=== PATIENT | female | born 1950 | race Caucasian/White ===

== ENCOUNTER 2018-03-07 22:05 | Inpatient (IN) ==
[2018-03-07] MEDS ORDERED: *HR* LORazepam 2 MG/ML VIAL ONE (22:12)
[2018-03-07] MEDS ORDERED: Ipratropium/Albuterol Neb 3 ML ONE (22:15)
[2018-03-07] MEDS ORDERED: Acetaminophen 650 MG RECTAL SUPP RC ONE (22:18)
[2018-03-07 22:34] LABS: Basophils # 0.1 K/mcL (0.0-0.2); Basophils % 0.4 %; Eosinophils % 0.1 %; Hematocrit 40.4 % (35.3-44.9); Hemoglobin 13.5 g/dL (11.5-15.4); Immature Granulocytes % 0.3 % (0-4); Lymphocytes # 2.5 K/mcL (0.6-4.6); Lymphocytes % 14.9 %; Mean Corpuscular HGB Conc 33.4 g/dL (31.6-35.5); Mean Corpuscular Hemoglobin 30.1 pg (28.0-33.3); Mean Corpuscular Volume 90.2 fL (83.0-100.0); Monocytes # 1.9 K/mcL (0.0-1.3); Monocytes % 11.3 %; Neutrophils # 12.1 K/mcL (1.6-8.9); Platelet Count 259 K/mcL (140-400); Red Blood Count 4.48 M/mcL (3.82-4.97); Red Cell Distribution Width 12.9 % (11.5-14.5)
[2018-03-07] MEDS ORDERED: Albuterol 2.5 MG/3 ML NEBULIZER IH ONE (22:42)
[2018-03-07] MEDS ORDERED: Ipratropium/Albuterol Neb 3 ML IH ONE (22:42)
[2018-03-07 22:44] LABS: ABG Base Excess 4 mEq/L (-2 to 3); ABG HCO3 32 mEq/L (21-27); ABG Oxygen Saturation 98 % (95-98); ABG PCO2 62 mmHg (35-45); ABG PH 7.33 pH Units (7.32-7.45); ABG PO2 122 mmHg (85-104); ABG TCO2 34 mEq/L (20-26)
[2018-03-07] MEDS ORDERED: methylPREDNISolone 125 MG/2 ML VIAL IVP ONE (22:48)
[2018-03-07 22:59] LABS: BUN/Creatinine Ratio 12 (6-26); Blood Urea Nitrogen 12 mg/dL (8-23); Calcium 9.1 mg/dL (8.6-10.3); Carbon Dioxide 27 mEq/L (23-29); Chloride 94 mEq/L (98-107); Glucose 239 mg/dL (70-105); Osmolality,Calculated 278 (280-300); Potassium 3.6 mEq/L (3.5-5.1); Sodium 130 mEq/L (136-145); eGFR For Non-African Americans 56 (> 60)
[2018-03-07 23:09] LABS: Troponin I 0.04 ng/mL (< 0.04)
[2018-03-07] MEDS ORDERED: Magnesium Sulfate 2 GM in D5% in Water 100 ML IVPB ONE (23:18)
[2018-03-07] MEDS ORDERED: Piperacillin/Tazobactam 3.375 GM in 0.9 % Sodium Chloride Mini Bag 100 ML IVPB ONE (23:24)
[2018-03-07] MEDS ORDERED: Vancomycin 1,000 MG in D5% in Water 250 ML IVPB ONE (23:24)
--- NOTE | 2018-03-07 23:46 | Emergency Department Note ---
Disposition Clinical Impression: Acute exacerbation of chronic obstructive pulmonary disease (COPD) Sepsis Qualifiers: Sepsis type: sepsis due to unspecified organism Qualified Code(s): A41.9 - Sepsis, unspecified organism Disposition: Admitted As Inpatient Condition: Fair Referrals: Vladislav Marino MD [Primary Care Provider] - Forms: ED Satisfaction Letter Time of Disposition: 01:00 [facility] - General Chief Complaint: ED Shortness of Breath/Dyspnea Stated Complaint: resp distress Time Seen by Provider: 03/07/18 22:21 Source: EMS Mode of arrival: ambulatory Limitations: other Nursing Notes Reviewed: Yes Vital Signs Reviewed: Yes - History of Present Illness 67-year-old female with a history of COPD presents to the emergency department in respiratory distress. Patient states symptoms have worsened over the past 2 days. She is unable to give a history regarding her case and presentation secondary to or respiratory distress. Patient was tripoding on initial evaluation and had subcostal retractions, she had a initial respiratory rate of 50. EMS states she was initially satting 60% at home, this improved with oxygen and albuterol inhaler with EMS. Patient was placed on BiPAP after the initial evaluation with a 3 duo nebs and 2 albuterol nebulizers. She gradually improved with her heart rate improving from 170 down to 125. Patient was also febrile on the initial evaluation of 101.2. Patient has a productive cough of yellow-green sputum. - Related Data Allergies Allergy/AdvReac Type Severity Reaction Status Date / Time No Known Allergies Allergy Verified 12/23/16 09:54 All systems ED: reviewed and negative except as stated. Review of Systems: As Per HPI Past Medical History - Past Medical History Attestation: Yes The following information was validated with the patient. Source: patient Medical history: Reports: COPD, hyperlipidemia, hypertension Psychiatric history: Reports: no psych history - Social History Smoking Status: Former smoker Smokeless Tobacco Status: No Alcohol use: Reports: none Drug use: Reports: none Physical Exam General: Alert and in respiratory distress with severe anxiety Skin: Warm, dry, intact Head: Normocephalic and atraumatic Neck: Supple, trachea midline and no tenderness Cardiovascular: Severe tachycardia, no murmur, normal perfusion Respiratory: Severe wheezing on bilateral posterior and anterior lung rincon with retractions present on exam. Musculoskeletal: Normal strength, no tenderness, swelling or deformity GI: Soft, nontender, nondistended. Bowel sounds present Neuro: A&O to person, place, time and situation. No focal deficits noted on exam - General Limitations: other General appearance: alert Course Vital Signs Temperature 101.2 F H 03/07/18 22:06 Pulse Rate 162 03/07/18 22:06 Respiratory Rate 40 03/07/18 22:06 Blood Pressure 161/112 03/07/18 22:06 O2 Sat by Pulse Oximetry 98 03/07/18 22:06 Temperature 98.0 F 03/08/18 00:45 Pulse Rate 126 03/08/18 00:45 Respiratory Rate 31 03/08/18 00:45 Blood Pressure 112/82 03/08/18 00:45 O2 Sat by Pulse Oximetry 99 03/08/18 00:45 Oxygen Delivery Oxygen Delivery Bipap Shortness of Breath/Dyspnea - MDM Narrative Medical decision making narrative: We had respiratory bedside and had confirmed patient is full code. We have possibility of intubating the patient however she started to gradually improve on BiPAP. Patient is now resting comfortably in the emergency department and answering questions well. She will be admitted to [facility] for further evaluation. Patient accepted by Dr. Austin. Patient was febrile emergency department and we started her on antibiotics empirically however her chest x-ray did not show evidence of acute infiltrate. - Medical Records Medical records reviewed: Yes I reviewed the patient's medical records. - Lab Data Lab results reviewed: Yes I reviewed the patient's lab results. Result diagrams: 03/07/18 22:26 03/07/18 22:26 Lab Results 03/07/18 03/07/18 03/07/18 Range/Units 22:19 22:26 22:26 WBC 16.6 H (4.3-11.1) K/mcL RBC 4.48 (3.82-4.97) M/mcL Hgb 13.5 (11.5-15.4) g/dL Hct 40.4 (35.3-44.9) % MCV 90.2 (83.0-100.0) fL MCH 30.1 (28.0-33.3) pg MCHC 33.4 (31.6-35.5) g/dL RDW 12.9 (11.5-14.5) % Plt Count 259 (140-400) K/mcL MPV 11.0 (9.4-12.4) fL Immature Gran % 0.3 (0-4) % Seg Neutrophils % 73.0 % Lymphocytes % 14.9 % Monocytes % 11.3 % Eosinophils % 0.1 % Basophils % 0.4 % Neutrophils # 12.1 H (1.6-8.9) K/mcL Lymphocytes # 2.5 (0.6-4.6) K/mcL Monocytes # 1.9 H (0.0-1.3) K/mcL Eosinophils # 0.0 (0.0-0.6) K/mcL Basophils # 0.1 (0.0-0.2) K/mcL Sample Site ABG pH (7.32-7.45) pH Units ABG pCO2 (35-45) mmHg ABG pO2 (85-104) mmHg ABG HCO3 (21-27) mEq/L ABG Total CO2 (20-26) mEq/L ABG O2 Saturation (95-98) % ABG Base Excess (-2 to 3) mEq/L Karri Test O2 Delivery Device Inspired O2 (1-15=lpm [id number]=%) Sodium 130 L (136-145) mEq/L Potassium 3.6 (3.5-5.1) mEq/L Chloride 94 L (98-107) mEq/L Carbon Dioxide 27 (23-29) mEq/L BUN 12 (8-23) mg/dL Creatinine 0.98 (0.60-1.20) mg/dL Est GFR ( Amer) > 60 (> 60) Est GFR (Non-Af Amer) 56 L (> 60) BUN/Creatinine Ratio 12 (6-26) Glucose 239 H (70-105) mg/dL Calculated Osmolality 278 L (280-300) Lactic Acid (0.5-2.2) mmol/L Calcium 9.1 (8.6-10.3) mg/dL Troponin I 0.04 H* (< 0.04) ng/mL B-Natriuretic Peptide 98 (Less than 100) pg/mL 03/07/18 03/07/18 03/08/18 Range/Units 22:26 22:37 00:24 WBC (4.3-11.1) K/mcL RBC (3.82-4.97) M/mcL Hgb (11.5-15.4) g/dL Hct (35.3-44.9) % MCV (83.0-100.0) fL MCH (28.0-33.3) pg MCHC (31.6-35.5) g/dL RDW (11.5-14.5) % Plt Count (140-400) K/mcL MPV (9.4-12.4) fL Immature Gran % (0-4) % Seg Neutrophils % % Lymphocytes % % Monocytes % % Eosinophils % % Basophils % % Neutrophils # (1.6-8.9) K/mcL Lymphocytes # (0.6-4.6) K/mcL Monocytes # (0.0-1.3) K/mcL Eosinophils # (0.0-0.6) K/mcL Basophils # (0.0-0.2) K/mcL Sample Site R Radial ABG pH 7.33 (7.32-7.45) pH Units ABG pCO2 62 H (35-45) mmHg ABG pO2 122 H (85-104) mmHg ABG HCO3 32 H (21-27) mEq/L ABG Total CO2 34 H (20-26) mEq/L ABG O2 Saturation 98 (95-98) % ABG Base Excess 4 H (-2 to 3) mEq/L Karri Test N/A O2 Delivery Device BiPAP Inspired O2 50.0 (1-15=lpm [id number]=%) Sodium (136-145) mEq/L Potassium (3.5-5.1) mEq/L Chloride (98-107) mEq/L Carbon Dioxide (23-29) mEq/L BUN (8-23) mg/dL Creatinine (0.60-1.20) mg/dL Est GFR ( Amer) (> 60) Est GFR (Non-Af Amer) (> 60) BUN/Creatinine Ratio (6-26) Glucose (70-105) mg/dL Calculated Osmolality (280-300) Lactic Acid 1.9 1.7 (0.5-2.2) mmol/L Calcium (8.6-10.3) mg/dL Troponin I (< 0.04) ng/mL B-Natriuretic Peptide (Less than 100) pg/mL - Radiology Data Radiology results reviewed: Yes I reviewed the patient's radiology results. - EKG Data EKG attestation: Yes I reviewed and interpreted this EKG. EKG results narrative: Sinus tachycardia with a rate of 158, QTC 446, QRS 111 Critical Care Time Critical Care Time: Yes Total Critical Care Time: 65 Attestation: The high probability of a clinically significant, sudden or life threatening deterioration of the respiratory and cardiovascular system(s) required my full and direct attention, intervention and personal management. The aggregate critical care time was 65 minutes. This time is in addition to time spent performing reported procedures but includes the following: x Data Review and interpretation x Patient assessment and monitoring of vital signs x Documentation x Medication orders and management
[2018-03-07] MEDS ORDERED: Levofloxacin 750 MG/150 ML 750 MG/150 ML BAG IVPB ONE (23:59)
--- NOTE | 2018-03-08 00:22 | Internal Med History&Physical ---
Date of Encounter: 03/08/18 Time of Encounter: 00:17 Internal Medicine - H&P: HPI Chief complaint: SOB Admitted From: Home History of present illness: Ms. Magaña is a 67 year old female with a PMH of COPD with 2 L continuous supplemental home oxygen dependence throughout the day, CAD, hypertension, hyperlipidemia, and obesity who presented c/o SOB, fever, and green-yellow sputum production for the past 2 days. Patient has recently been caring for her daughter at a group home and has been exposed to multiple sick contacts. Patient tried breathing treatments at home without relief. According to EMS, she was initially satting 60% at home, this improved with oxygen and albuterol inhaler via EMS. Patient was febrile on her initial evaluation temp 101.2 F and her heart rate improving from 170 down to 125 after she was was placed on BiPAP and given 3 duo nebs and 2 albuterol nebulizers. Labs revealed leukocytosis WBC 16.6 with left shift and CXR revealed new sclerotic appearance of the posterior right 10th rib without pleural effusion or focal airspace opacity. Patient's ABG revealed pH 7.33, pCO2 62, pO2 122, HCO3 32, and O2 sat 98% while on Bipap. Patient reports quit smoking in 1996. Granddaughter is at bedside. Past Med Surg Social Fam HX - Past Medical History Medical history: cancer (Cervical), COPD, coronary artery disease, hyperlipidemia, hypertension Psychiatric history: no psych history - Past Surgical History Surgical History: cataract, hysterectomy Additional surgical history: Heart Cath- no stents 2000. Hysterectomy 1971. Colonoscopy 12/09/13 Repeat in 3 years. EGD 12/09/13. cataract surgery 04/13/16 - Social History Smoking Status: Former smoker (quit in 1996) Smokeless Tobacco Status: No Alcohol use: none Drug use: none Current living situation: Home, With Family Activity Level: Independent ambulation - Family History Mother Living Status: Age at : 62 Hx Family Cardiac Disorders: Yes (CHF) Hx Family Cancer: Yes (Cervical) Hx Family Endocrine Disorder: Yes (DM) Father Living Status: Age at : 67 Hx Family Cardiac Disorders: Yes (Massive heart attack) Daughter Hx Family Neurologic Disorders: Yes (CVA) Internal Medicine - H&P: Meds 3 Allergy/AdvReac Type Severity Reaction Status Date / Time No Known Allergies Allergy Verified 12/23/16 09:54 All Systems PM: A 10-system review of systems was performed and is negative for pertinent findings except as documented above in the HPI. - Constitutional Constitutional: chills, fatigue, fever(s), lethargy, weakness, no weight gain, no weight loss - EENT Eyes: no blurry vision, no change in vision Nose, mouth and throat: no nasal congestion, no sinus pain, no sore throat - Cardiovascular Cardiovascular ROS IM: diaphoresis, dyspnea, dyspnea on exertion, palpitations, no chest pain, no edema - Respiratory Respiratory: cough, dyspnea, dyspnea on exertion, wheezing, chest congestion, excessive phlegm production, change in phlegm color (green), no hemoptysis - Gastrointestinal Gastrointestinal: constipation, heartburn, no abdominal pain, no bloating, no nausea, no vomiting - Genitourinary Genitourinary: no dysuria, no hematuria, no urinary frequency, no urinary urgency - Musculoskeletal Musculoskeletal ROS IM: no back pain, no numbness, no tingling - Integumentary Integumentary IM: no erythema, no rash - Neurological Neurological ROS: weakness, no dizziness, no focal weakness, no frequent falls, no headache(s), no numbness, no tremor(s) - Psychiatric Psychiatric: no anxiety, no depression - Endocrine Endocrine IM: fatigue, polyuria, no polydipsia, no polyphagia - Hematologic/Lymphatic Hematologic/Lymphatic: no easy bleeding, no easy bruising - Constitutional Vitals: Temp Pulse Resp BP Pulse Ox 101.2 F H 141 40 113/81 97 03/07/18 22:06 03/08/18 00:13 03/08/18 00:13 03/08/18 00:13 03/08/18 00:13 General appearance: Present: mild distress, A&O X 3, pleasant, obese, answers questions appropriately Exam: mild distress, wearing bipap - Head Head exam: Present: atraumatic, normocephalic - Eye Eye exam: Present: EOMI, conjuntiva pink, sclera anicteric - ENT ENT exam: Present: mucous membranes dry, normal oropharynx - Neck Neck exam general surgery: Present: supple, trachea midline. Absent: lymphadenopathy - Respiratory Respiratory exam: Present: accessory muscle use, respiratory distress (mild), wheezes (diffuse, bilaterally), tachypnea. Absent: CTAB, rales, rhonchi - Cardiovascular Cardiovascular exam: Present: +S1, +S2, tachycardia. Absent: diastolic murmur, gallop, rubs, systolic murmur - GI/Abdominal GI/Abdominal exam: Present: normal bowel sounds, soft, no peritoneal signs. Absent: distended, tenderness - Extremities Exam Extremities exam: Present: normal inspection, warm, radial pulses palpable and symmetrical. Absent: calf tenderness, cyanotic, pedal edema - Back Exam Back exam: Present: normal inspection. Absent: tenderness - Neurological Exam Neurological exam: Present: alert, CN II-XII intact, oriented X3, no focal deficits. Absent: pronater drift, facial droop, speech deficit - Psychiatric Psychiatric exam: Present: anxious, normal affect - Skin Skin exam: Present: dry, intact, normal color, warm Internal Med - H&P Results - Labs CBC & Chem 7: 03/07/18 22:26 03/07/18 22:26 Labs: Short CBC 03/07/18 Range/Units 22:26 WBC 16.6 H (4.3-11.1) K/mcL Hgb 13.5 (11.5-15.4) g/dL Hct 40.4 (35.3-44.9) % Plt Count 259 (140-400) K/mcL Neutrophils # 12.1 H (1.6-8.9) K/mcL BMP 03/07/18 22:26 Sodium 130 L Potassium 3.6 Chloride 94 L Carbon Dioxide 27 BUN 12 Creatinine 0.98 Glucose 239 H Calcium 9.1 Cardiac Enzymes 03/07/18 Range/Units 22:26 Troponin I 0.04 H* (< 0.04) ng/mL - ABG Interpretation ABG results: 03/07/18 22:37 ABG pH 7.33 ABG pCO2 62 H ABG pO2 122 H ABG HCO3 32 H ABG Total CO2 34 H ABG O2 Saturation 98 ABG Base Excess 4 H - EKG Data -: EKG Interpreted by Myself EKG shows normal: sinus rhythm Rate: tachycardia (HR 158, QTC 446, QRS 111, borderline ST depressions in inferior leads) - EKG Data Prior EKG available for review: yes When compared to previous EKG: there are significant changes - Impressions ITS Impressions Chest X-Ray 03/07/18 22:19 IMPRESSION: 1. The visible lungs are without evidence of pneumothorax, pleural effusion or focal airspace opacity. 2. Apparent new sclerotic appearance of the posterior right 10th rib in comparison with the prior study from 12/23/2016. Attention on follow-up chest radiographs is recommended. This could be further evaluated via dedicated radiographs of the right ribs on a nonemergent basis. D/ / Jaya Jones / Jaya Jones Interpreting Provider: Jaya Jones - Assessment and plan (1) Sepsis Current Visit: Yes Status: Acute Assessment and plan: Patient met sepsis criteria on arrival with leukocytosis WBC 16.6 with left shift, tachycardia HR 162, and temperature 101.2 F She has copious green sputum production and acute respiratory distress CXR revealed new sclerotic appearance of the posterior right 10th rib without pleural effusion or focal airspace opacity Continue broad spectrum antibiotics Vancomycin, Zosyn, and Levaquin (day 1). Blood cultures pending Sputum cultures pending UA with culture pending Sepsis IV fluid bolus was given Lactic acid level 1.9, repaet lactic acid level 1.7 Qualifiers: Sepsis type: sepsis due to unspecified organism Qualified Code(s): A41.9 - Sepsis, unspecified organism (2) Healthcare-associated pneumonia Current Visit: Yes Status: Suspected Assessment and plan: Patient has recently been caring for her daughter at a group home and has been exposed to multiple sick contacts. Patient met sepsis criteria on arrival with leukocytosis WBC 16.6 with left shift, tachycardia HR 162, and temperature 101.2 F She has copious green sputum production and acute respiratory distress. CXR revealed new sclerotic appearance of the posterior right 10th rib without pleural effusion or focal airspace opacity Continue broad spectrum antibiotics Vancomycin, Zosyn, and Levaquin (day 1). Blood cultures pending Sputum cultures pending Urine Legionella and strep pneumo antigens pending Procalcitonin level pending De-escalate antibiotics based on culture results Continue close monitoring (3) Acute on chronic respiratory failure with hypoxia and hypercapnia Current Visit: Yes Status: Acute Assessment and plan: Patient presents with acute respiratory failure Patient usually wears 2 L of oxygen during the day ABG reviewed, reveals pH 7.33, pCO2 62, pO2 122, HCO3 32, and O2 sat 98% while on Bipap Continue BiPAP and repeat ABG in AM (4) Acute exacerbation of chronic obstructive pulmonary disease (COPD) Current Visit: Yes Status: Acute Assessment and plan: Acute exacerbation of COPD Continue antibiotics, steroids, and bronchodilators Patient sees television news producer, Dr. Bone (5) CAD (coronary artery disease) Current Visit: Yes Status: Acute Assessment and plan: Patient has known CAD Heart Cath 2000- no stents Last echo 06/02/15 revealed LVEF 55-60%, mild LV diastolic dysfunction, and no pulmonary HTN. Continue home Aspirin and statin Qualifiers: Coronary Disease-Associated Artery/Lesion type: unspecified vessel or lesion type [place] vs. transplanted heart: [place] heart Associated angina: without angina Qualified Code(s): I25.10 - Atherosclerotic heart disease of [place] coronary artery without angina pectoris (6) Elevated troponin Current Visit: Yes Status: Acute Assessment and plan: Patient presented with elevated troponin level was 0.04 EKG revealed sinus tachycardia with no signs of ischemia Possibly etiology includes demand ischemia in the setting of sepsis Trend serial troponins Consider cardiology consult if troponin level continues to rise (7) HTN (hypertension) Current Visit: Yes Status: Chronic Assessment and plan: Continue home metoprolol Qualifiers: Hypertension type: essential hypertension Qualified Code(s): I10 - Essential (primary) hypertension (8) HLD (hyperlipidemia) Current Visit: No Status: Chronic Assessment and plan: Resume home statin Qualifiers: Hyperlipidemia type: unspecified Qualified Code(s): E78.5 - Hyperlipidemia , unspecified (9) Obesity (BMI 30.0-34.9) Current Visit: Yes Status: Chronic Assessment and plan: BMI 31.1, lifestyle modification (10) Constipation Current Visit: Yes Status: Chronic Assessment and plan: Senna Plus ordered Qualifiers: Constipation type: unspecified constipation type Qualified Code(s): K59.00 - Constipation, unspecified (11) DVT prophylaxis Current Visit: Yes Status: Acute Assessment and plan: Heparin subcutaneous TID - Time Spent With Patient Total time spent is greater than 50% in coordination of care (as documented) at patient's floor/unit and/or counseling patient: Sepsis Reassessment Note - Evaluation Sepsis Screen: Sepsis Risk Current Stage of Sepsis: sepsis Possible Source of Sepsis: pulmonary - Focused Exam Date of Encounter: 03/08/18 Time of Encounter: 01:32 Vital Signs: Vital Signs Temp Pulse Resp BP Pulse Ox 03/08/18 00:45 126 31 112/82 99 03/08/18 00:13 141 40 113/81 97 03/07/18 23:46 28 117/78 97 03/07/18 23:42 143 33 117/78 97 03/07/18 23:06 162 44 139/93 98 03/07/18 22:47 35 139/93 99 03/07/18 22:33 158 40 154/91 93 03/07/18 22:29 92 03/07/18 22:15 50 161/112 98 03/07/18 22:06 101.2 F H 162 40 161/112 98 Respiratory Exam: Present: wheezes, accessory muscle use Cardiovascular Exam: Present: tachycardia Capillary Refill: < 2 seconds Peripheral Pulse Strength: 3+ normal Peripheral Pulse Location: Radial Skin Exam: pink
[2018-03-08] MEDS ORDERED: Vancomycin (wt based) 1,000 MG VIAL IVPB SCH (01:00)
[2018-03-08] MEDS: 0.9 % Sodium Chloride 1,000 ML IVC SCH ×3 (01:31→05:09)
[2018-03-08 01:35] LABS: Magnesium 1.9 mg/dL (1.6-2.6)
[2018-03-08] MEDS ORDERED: Aspirin Enteric Coated 325 MG Tablet PO ONE (01:42)
[2018-03-08 02:18] LABS: Bilirubin,Urine Negative (Negative); Blood,Urine Large (Negative); Clarity,Urine Cloudy (Clear); Color,Urine Yellow (Yellow); Glucose,Urine (UA) 100 mg/dL (Normal); Ketones,Urine Negative (Negative); Leukocyte Esterase,Urine Trace (Negative); Nitrite,Urine Negative (Negative); Protein,Urine 100 mg/dL (Neg-Trace); Specific Gravity,Urine 1.014 (1.010-1.025); Urobilinogen,Urine Normal (Normal)
[2018-03-08 02:20] LABS: Bacteria,Urine Few per hpf (None-Few); Hyaline Casts,Urine Few per lpf (None-Few); RBC,Urine TNTC per hpf (0-3); Squamous Epithelial Cell,Urine Many per lpf (None-Few); WBC,Urine 50-100 per hpf (0-3)
[2018-03-08] MEDS: Melatonin 3 MG TABLET PO SCH ×2 (03:18→22:16)
[2018-03-08] MEDS: Ipratropium/Albuterol Neb 3 ML IH SCH ×2 (03:43→07:31)
[2018-03-08 04:21] LABS: Hematocrit 34.8 % (35.3-44.9); Mean Corpuscular HGB Conc 33.3 g/dL (31.6-35.5); Mean Corpuscular Hemoglobin 30.1 pg (28.0-33.3); Mean Corpuscular Volume 90.2 fL (83.0-100.0); Mean Platelet Volume 11.1 fL (9.4-12.4); Platelet Count 173 K/mcL (140-400); Red Blood Count 3.86 M/mcL (3.82-4.97)
[2018-03-08 04:31] LABS: INR 1.2; Prothrombin Time 13.6 Seconds (9.4-12.1)
[2018-03-08 04:33] LABS: Hemoglobin 11.6 g/dL (11.5-15.4)
[2018-03-08 04:34] LABS: Activated Partial Thrombo Time 25.8 Seconds (26.0-36.0)
[2018-03-08 04:40] LABS: BUN/Creatinine Ratio 12 (6-26); Blood Urea Nitrogen 13 mg/dL (8-23); Calcium 8.1 mg/dL (8.6-10.3); Carbon Dioxide 26 mEq/L (23-29); Chloride 99 mEq/L (98-107); Glucose 216 mg/dL (70-105); Osmolality,Calculated 279 (280-300); Potassium 3.3 mEq/L (3.5-5.1); Sodium 131 mEq/L (136-145); eGFR For Non-African Americans 50 (> 60)
[2018-03-08] MEDS ORDERED: Potassium Chloride 40 MEQ, Lidocaine 1% 2 ML in D5% in Water 500 ML IVPB ONE (04:42)
[2018-03-08 04:43] LABS: Troponin I 0.07 ng/mL (< 0.04)
[2018-03-08 04:44] LABS: ABG Base Excess -1 mEq/L (-2 to 3); ABG HCO3 25 mEq/L (21-27); ABG Oxygen Saturation 96 % (95-98); ABG PCO2 42 mmHg (35-45); ABG PH 7.38 pH Units (7.32-7.45); ABG PO2 87 mmHg (85-104); ABG TCO2 26 mEq/L (20-26); Blood Gas Modality avaps; Blood Gas PEEP 8 cm H2O; Blood Gas VT 500 cc
[2018-03-08 05:40] LABS: Lymphocytes # 0.2 K/mcL (0.6-4.6); Monocytes # 0.2 K/mcL (0.0-1.3); Neutrophils # 11.5 K/mcL (1.6-8.9); Platelet Estimate Normal (Normal)
[2018-03-08] MEDS: *HR* Heparin 5,000 UNIT/ML VIAL SQ SCH ×3 (05:57→19:49)
[2018-03-08] MEDS ORDERED: MethylPREDNISolone 40 MG/ML VIAL IVP SCH (08:00)
[2018-03-08] MEDS ORDERED: Piperacillin/Tazobactam 3.375 GM in 0.9 % Sodium Chloride Mini Bag 100 ML IVPB SCH (08:00)
[2018-03-08] MEDS ORDERED: Levalbuterol Neb 0.63 MG/3 ML IH ONE (08:26)
--- NOTE | 2018-03-08 08:39 | Internal Med Progress Note ---
<Bradly Scott S - Last Filed: 03/08/18 12:38> Hospitalist Progress Note - Encounter Date of Encounter: 03/08/18 Time of Encounter: 08:36 - Subjective Interval History: Ms. Magaña is a 67yo female with a PMH of COPD requring 2L O2 throughout the day , CAD, HDL, HTN and obesity. She presented on 03/07 with increasing SOB from baseline, subjective fevers and increase in olive green sputum production for the last 48hrs. She states she has been increasingly having upper URI s/s over the last 3-4 weeks and then suddenly began to feel worse. She has been caring for her daughter who recently had a stroke. Of note, she told the night resident that she was staying at a fpc but I clarfieid this with her and she states the daughter lives at home. The pt was found to be O2 sat in the 60's by EMS , which improved with oxygen and albuterol inhaler. -initial temprature was 101.2*F and heart rate was 170, which improved with BiPAP to the 120's Pt reports sputum production continuing this morning. She states it is olive green in color without blood. She has difficulty breathing, speaking in full sentences. The pt denies chest pain, palpiltations, N/V/D, abd pain. She states that she is able to lie down but is having some trouble and diffiuculty doing so 2/2 SOB. - Exam Vitals: Temp Pulse Resp BP Pulse Ox 98.2 F 101 24 133/83 99 03/08/18 06:49 03/08/18 06:49 03/08/18 07:33 03/08/18 06:49 03/08/18 07:33 Exam: general - AOx3, mild distress, cooperative cardio - rrr s1s2 CTA no MRG lungs - wheezing in all lung rincon, scattered crackles no rhonchi. Decreased breath sounds abd - obese, ntnd, no rebound or guarding skin - intact, no rash or ulcer extremities - no edema - Assessment and Plan (1) Sepsis Current Visit: Yes Status: Acute Assessment and Plan: On admission pt met sepsis criteria with leukocytosis 16.6, HR 162, t max 101.2 -Possible source of infxn was CXR with new sclerotic appearance of the posterior right 10th rib without pleural effusion or focal airspace opacity Currently continues to meet sepsis criteria WBC 12, HR 101, pt remains afebrile Lactic acid 1.9, repeat 1.7 S pneumo and legionella anitgens negative MRSA screen negative Plan: -blood cultures pending -On Zosyn and Levaquin (day 1) -d/c vanc -sputum cx peding -sepsis bolus given, no fluids currently running -procalcitonin pending (2) HTN (hypertension) Current Visit: No Status: Chronic Assessment and Plan: BP 154/91 -add hydralazine 10mg IVP q6hr prn SBP>160 -Continue home metoprolol (3) HLD (hyperlipidemia) Current Visit: No Status: Chronic Assessment and Plan: Resume home statin (4) Obesity (BMI 30.0-34.9) Current Visit: No Status: Chronic Assessment and Plan: BMI 31.1, lifestyle modification (5) DVT prophylaxis Current Visit: Yes Status: Acute Assessment and Plan: Heparin subcutaneous TID (6) Acute on chronic respiratory failure with hypoxia and hypercapnia Current Visit: Yes Status: Acute Assessment and Plan: Patient presents with acute respiratory failure -Patient usually wears 2 L of oxygen during the day, had to turn it up to 4L -ABG reviewed, reveals pH 7.33, pCO2 62, pO2 122, HCO3 32, and O2 sat 98% while on Bipap -ABG this morning is pH 7.38, pCO2 42, pO2 87, HCO3 33 Plan: -Continue BiPAP -methylprednisolone 40mg IVP q12 -Xopenex 1.25mg q6hr (7) Constipation Current Visit: Yes Status: Chronic Assessment and Plan: Senna Plus ordered (8) Acute exacerbation of chronic obstructive pulmonary disease (COPD) Current Visit: Yes Status: Acute Assessment and Plan: Acute exacerbation of COPD -increase of green mucus, fever, cough, SOB from baseline -increased needs of oxygen Plan: -methylprednisolone IV q12hr -Xopenex q6hr -vanc, zosyn, levaquin -sees Dr. Snow outpatient (9) CAD (coronary artery disease) Current Visit: Yes Status: Acute Assessment and Plan: Patient has known CAD -no stents, [facility] 2000 Last echo 06/02/15 revealed LVEF 55-60%, mild LV diastolic dysfunction, and no pulmonary HTN. Plan: -Continue home Aspirin, beta tai and statin (10) Elevated troponin Current Visit: Yes Status: Acute Assessment and Plan: Patient presented with elevated troponin level was 0.04 ---> 0.07 -EKG revealed sinus tachycardia with no signs of ischemia Type II - demand ischemia -trend troponins -consult cardiology if troponin continues to increase (11) Hypokalemia Current Visit: Yes Status: Acute Assessment and Plan: K this morning 3.3 -replaced -check CMP in AM (12) Community acquired pneumonia Current Visit: Yes Status: Acute Assessment and Plan: Increasing green sputum production, cough, SOB, fever -sepsis criteria on arrival with leukocytosis WBC 16.6 with left shift, tachycardia HR 162, and temperature 101.2 F Pt currently in mild respiratory distress, unable to speak in full sentences and is using accessory mm of respiration -CXR revealed new sclerotic appearance of the posterior right 10th rib without pleural effusion or focal airspace opacity Legionella and s pneumo antigens negative MRSA screen negative Plan: -Continue broad spectrum antibiotics Zosyn, and Levaquin (day 1) -d/c vanc (03/08/18) -Blood cultures pending -Sputum cultures pending -Procalcitonin level pending -De-escalate antibiotics based on culture results -PTOT evaluation - Time Spent with Patient Total time spent is greater than 50% in coordination of care (as documented) at patient's floor/unit and/or counseling patient: less than 15 minutes Plan of Care Discussed with: patient Internal Medicine: Result - Labs CBC & Chem 7: 03/08/18 04:04 03/08/18 04:04 - ABG Interpretation ABG results: ABG ABG pH 7.38 pH Units (7.32-7.45) 03/08/18 04:40 ABG pCO2 42 mmHg (35-45) 03/08/18 04:40 ABG pO2 87 mmHg (85-104) 03/08/18 04:40 ABG O2 Saturation 96 % (95-98) 03/08/18 04:40 PT/INR, D-dimer PT 13.6 Seconds (9.4-12.1) H 03/08/18 04:04 Consult Discharge Plan - Plan Referrals: Vladislav Marino MD [Primary Care Provider] - 03/16/18 2:00 pm <Mj Woo - Last Filed: 03/08/18 17:53> Hospitalist Progress Note - Encounter Date of Encounter: 03/08/18 - Exam Vitals: Temp Pulse Resp BP Pulse Ox 98.2 F 128 22 130/70 92 03/08/18 16:13 03/08/18 16:13 03/08/18 16:13 03/08/18 16:13 03/08/18 16:13 - Assessment and Plan (1) Sepsis Current Visit: Yes Status: Acute (2) HTN (hypertension) Current Visit: No Status: Chronic (3) HLD (hyperlipidemia) Current Visit: No Status: Chronic (4) Obesity (BMI 30.0-34.9) Current Visit: No Status: Chronic (5) DVT prophylaxis Current Visit: Yes Status: Acute (6) Acute on chronic respiratory failure with hypoxia and hypercapnia Current Visit: Yes Status: Acute (7) Constipation Current Visit: Yes Status: Chronic (8) Acute exacerbation of chronic obstructive pulmonary disease (COPD) Current Visit: Yes Status: Acute (9) CAD (coronary artery disease) Current Visit: Yes Status: Acute (10) Elevated troponin Current Visit: Yes Status: Acute (11) Hypokalemia Current Visit: Yes Status: Acute (12) Community acquired pneumonia Current Visit: Yes Status: Acute - Time Spent with Patient Total time spent is greater than 50% in coordination of care (as documented) at patient's floor/unit and/or counseling patient: Internal Medicine: Result - Labs CBC & Chem 7: 03/08/18 04:04 03/08/18 04:04 Labs: Cardiac Enzymes 03/08/18 Range/Units 10:10 Troponin I 0.03 (< 0.04) ng/mL - ABG Interpretation ABG results: ABG ABG pH 7.38 pH Units (7.32-7.45) 03/08/18 04:40 ABG pCO2 42 mmHg (35-45) 03/08/18 04:40 ABG pO2 87 mmHg (85-104) 03/08/18 04:40 ABG O2 Saturation 96 % (95-98) 03/08/18 04:40 PT/INR, D-dimer PT 13.6 Seconds (9.4-12.1) H 03/08/18 04:04 - Attending Attestation I examined this patient and my medical decision-making was reviewed with the Resident Physician. I agree with the documented findings, disposition and treatment plan as described except to the extent set forth below. <Bradly Scott - Last Filed: 03/08/18 12:38> (1) Sepsis Qualifiers: Sepsis type: sepsis due to unspecified organism Qualified Code(s): A41.9 - Sepsis, unspecified organism (2) HTN (hypertension) Qualifiers: Hypertension type: essential hypertension Qualified Code(s): I10 - Essential (primary) hypertension (3) HLD (hyperlipidemia) Qualifiers: Hyperlipidemia type: unspecified Qualified Code(s): E78.5 - Hyperlipidemia, unspecified (7) Constipation Qualifiers: Constipation type: unspecified constipation type Qualified Code(s): K59.00 - Constipation, unspecified (9) CAD (coronary artery disease) Qualifiers: Coronary Disease-Associated Artery/Lesion type: unspecified vessel or lesion type [place] vs. transplanted heart: [place] heart Associated angina: without angina Qualified Code(s): I25.10 - Atherosclerotic heart disease of [place] coronary artery without angina pectoris (12) Community acquired pneumonia Qualifiers: Laterality: right Lung location: unspecified part of lung Qualified Code(s) : J18.9 - Pneumonia, unspecified organism <[email or web address] - Last Filed: 03/08/18 17:53> (1) Sepsis Qualifiers: Sepsis type: sepsis due to unspecified organism Qualified Code(s): A41.9 - Sepsis, unspecified organism (2) HTN (hypertension) Qualifiers: Hypertension type: essential hypertension Qualified Code(s): I10 - Essential (primary) hypertension (3) HLD (hyperlipidemia) Qualifiers: Hyperlipidemia type: unspecified Qualified Code(s): E78.5 - Hyperlipidemia, unspecified (7) Constipation Qualifiers: Constipation type: unspecified constipation type Qualified Code(s): K59.00 - Constipation, unspecified (9) CAD (coronary artery disease) Qualifiers: Coronary Disease-Associated Artery/Lesion type: unspecified vessel or lesion type [place] vs. transplanted heart: [place] heart Associated angina: without angina Qualified Code(s): I25.10 - Atherosclerotic heart disease of [place] coronary artery without angina pectoris (12) Community acquired pneumonia Qualifiers: Laterality: right Lung location: unspecified part of lung Qualified Code(s) : J18.9 - Pneumonia, unspecified organism
[2018-03-08] MEDS ORDERED: Aspirin Enteric Coated 81 MG Tablet PO SCH (09:00)
[2018-03-08] MEDS ORDERED: Levalbuterol Neb 1.25 MG/3 ML IH SCH (10:00)
[2018-03-08] MEDS ORDERED: Levalbuterol Neb 0.63 MG/3 ML IH PRN (10:40)
[2018-03-08] MEDS: Levalbuterol Neb 1.25 MG/3 ML IH SCH ×4 (11:33→23:08)
[2018-03-08] MEDS: Acetaminophen 325 MG TABLET PO PRN (12:49)
[2018-03-08] MEDS ORDERED: Aminoglycoside Consult 1 EACH MC ONE (14:38)
--- NOTE | 2018-03-08 15:39 | Electrocardiograph Report ---
[address] [address] Test Date: 2018-03-07 Pat Name: Alice Magaña Department: EXAM2 Room: 03 Gender: F [employer]: : 1950 Requested By: Vladislav Ren Order Number: [id number] Reading MD: Mayda Zhang Measurements Intervals [place] Rate: 158 P: 83 GA: 123 QRS: 92 QRSD: 111 T: 70 QT: 275 QTc: 446 Interpretive Statements Sinus tachycardia Nonspecific ST abnormalities Electronically Signed On 03-08-2018 15:37:38 EDT by Mayda Zhang
[2018-03-08] MEDS: MethylPREDNISolone 40 MG/ML VIAL IVP SCH (17:37)
[2018-03-08] MEDS: Budesonide/Formoterol 160/4.5 1 PUFF INH IH SCH (20:15)
[2018-03-08] MEDS ORDERED: *HR* LORazepam 2 MG/ML VIAL IVP ONE (20:36)
[2018-03-08] MEDS ORDERED: NON-FORMULARY MEDICATION 1 EACH EACH (Potassium Chloride [Klor-Con 10] 10 MEQ) PO SCH (21:00)
[2018-03-09] MEDS: Levalbuterol Neb 1.25 MG/3 ML IH SCH ×6 (04:16→23:00)
[2018-03-09 05:08] LABS: Basophils % 0.1 %; Hemoglobin 11.3 g/dL (11.5-15.4); Immature Granulocytes % 0.5 % (0-4); Lymphocytes # 1.4 K/mcL (0.6-4.6); Lymphocytes % 10.2 %; Mean Corpuscular HGB Conc 33.2 g/dL (31.6-35.5); Mean Corpuscular Hemoglobin 29.9 pg (28.0-33.3); Mean Corpuscular Volume 89.9 fL (83.0-100.0); Mean Platelet Volume 11.3 fL (9.4-12.4); Monocytes # 0.9 K/mcL (0.0-1.3); Monocytes % 6.5 %; Neutrophils # 11.5 K/mcL (1.6-8.9); Platelet Count 185 K/mcL (140-400); Red Blood Count 3.78 M/mcL (3.82-4.97); Red Cell Distribution Width 12.8 % (11.5-14.5); Segmented Neutrophils % 82.7 %
[2018-03-09] MEDS: *HR* Heparin 5,000 UNIT/ML VIAL SQ SCH ×3 (05:24→21:56)
[2018-03-09] MEDS: MethylPREDNISolone 40 MG/ML VIAL IVP SCH ×2 (05:24→17:38)
[2018-03-09 05:57] LABS: Alanine Aminotransferase 51 Units/L (7-52); Albumin 3.6 g/dL (3.5-5.7); Albumin/Globulin Ratio 1.2 (1.1-2.2); Alkaline Phosphatase 64 Units/L (34-104); Aspartate Amino Transferase 51 Units/L (13-39); BUN/Creatinine Ratio 21 (6-26); Bilirubin,Total 0.3 mg/dL (0.3-1.0); Blood Urea Nitrogen 16 mg/dL (8-23); Carbon Dioxide 27 mEq/L (23-29); Chloride 103 mEq/L (98-107); Glucose 153 mg/dL (70-105); Osmolality,Calculated 284 (280-300); Potassium 4.5 mEq/L (3.5-5.1); Sodium 135 mEq/L (136-145); Total Protein 6.6 g/dL (6.4-8.9); eGFR For Non-African Americans > 60 (> 60)
[2018-03-09] MEDS: Lisinopril 20 MG TABLET PO SCH (07:59)
[2018-03-09] MEDS: Azithromycin 250 MG TABLET PO SCH (07:59)
[2018-03-09] MEDS: Aspirin Enteric Coated 81 MG Tablet PO SCH (07:59)
[2018-03-09] MEDS: Tiotropium 18 MCG inhalation IH SCH (07:59)
[2018-03-09] MEDS: Budesonide/Formoterol 160/4.5 1 PUFF INH IH SCH ×2 (08:07→20:40)
[2018-03-09] MEDS ORDERED: (Ubidecarenone [Coq10] 50 MG) PO SCH (09:00)
--- NOTE | 2018-03-09 09:21 | Internal Med Progress Note ---
<Bradly Scott S - Last Filed: 03/09/18 11:51> Hospitalist Progress Note - Encounter Date of Encounter: 03/09/18 Time of Encounter: 09:17 - Subjective Interval History: Ms. Magaña is a 67yo female with a PMH of COPD requring 2L O2 throughout the day , CAD, HDL, HTN and obesity. She presented on 03/07 with increasing SOB from baseline, subjective fevers and increase in olive green sputum production for the last 48hrs. She states she has been increasingly having upper URI s/s over the last 3-4 weeks and then suddenly began to feel worse. She has been caring for her daughter who recently had a stroke. Of note, she told the night resident that she was staying at a fpc but I clarfieid this with her and she states the daughter lives at home. The pt was found to be O2 sat in the 60's by EMS , which improved with oxygen and albuterol inhaler. -initial temprature was 101.2*F and heart rate was 170, which improved with BiPAP to the 120's Yesterday morning the pt still reported olive green in color sputum production without blood. Pt continues to have difficulty breathing, speaking in full sentences. -The pt denies chest pain, palpiltations, N/V/D, abd pain. -was unable to lie flat on back completely and had to sleep sitting slightly up Pt reports that sputum production has improved but isn't completely resolved. - Exam Vitals: Temp Pulse Resp BP Pulse Ox 98.4 F 95 20 139/79 92 03/09/18 08:27 03/09/18 08:27 03/09/18 08:27 03/09/18 08:27 03/09/18 08:27 Exam: general - AOx3, mild distress, cooperative cardio - rrr s1s2 CTA no MRG lungs - wheezing in all lung rincon, scattered crackles no rhonchi. Decreased breath sounds abd - obese, ntnd, no rebound or guarding skin - intact, no rash or ulcer extremities - no edema - Assessment and Plan (1) Sepsis Current Visit: Yes Status: Acute Assessment and Plan: On admission pt met sepsis criteria with leukocytosis 16.6, HR 162, t max 101.2 -Possible source of infxn was CXR with new sclerotic appearance of the posterior right 10th rib without pleural effusion or focal airspace opacity Currently continues to meet sepsis criteria WBC 13.9, HR 95, pt remains afebrile Lactic acid 1.9, repeat 1.7 S pneumo and legionella anitgens negative MRSA screen negative Sputum cx negative Plan: -blood cultures pending -On azithromycin and rocephin (day 1) -d/c vanc and levaquin and zosyn -sepsis bolus given, no fluids currently running -procalcitonin pending (2) Community acquired pneumonia Current Visit: Yes Status: Acute Assessment and Plan: Increasing green sputum production, cough, SOB, fever -sepsis criteria on arrival with leukocytosis WBC 16.6 with left shift, tachycardia HR 162, and temperature 101.2 F Pt currently in mild respiratory distress, unable to speak in full sentences and is using accessory mm of respiration -CXR revealed new sclerotic appearance of the posterior right 10th rib without pleural effusion or focal airspace opacity Legionella and s pneumo antigens negative MRSA screen negative Sputum cx negative Plan: -azithro day 1, rocephin day 1 -d/c Levaquin -d/c vanc (03/08/18) and d/c zosyn -Blood cultures pending -Procalcitonin level pending -PTOT evaluation (3) HTN (hypertension) Current Visit: No Status: Chronic Assessment and Plan: BP 139/79 -add hydralazine 10mg IVP q6hr prn SBP>160 -Continue home metoprolol (4) HLD (hyperlipidemia) Current Visit: No Status: Chronic Assessment and Plan: Resume home statin (5) Obesity (BMI 30.0-34.9) Current Visit: No Status: Chronic Assessment and Plan: BMI 31.1, lifestyle modification (6) DVT prophylaxis Current Visit: Yes Status: Acute Assessment and Plan: Heparin subcutaneous TID (7) Acute on chronic respiratory failure with hypoxia and hypercapnia Current Visit: Yes Status: Acute Assessment and Plan: Patient presents with acute respiratory failure -Patient usually wears 2 L of oxygen during the day, had to turn it up to 4L, currently back on 2L [place] -ABG reviewed, reveals pH 7.33, pCO2 62, pO2 122, HCO3 32, and O2 sat 98% while on Bipap -ABG 03/08/18 is pH 7.38, pCO2 42, pO2 87, HCO3 33 Plan: -Continue BiPAP -methylprednisolone 40mg IVP q12 -Xopenex 1.25mg q6hr (8) Constipation Current Visit: No Status: Chronic Assessment and Plan: Senna Plus ordered (9) Acute exacerbation of chronic obstructive pulmonary disease (COPD) Current Visit: Yes Status: Acute Assessment and Plan: Acute exacerbation of COPD -increase of green mucus, fever, cough, SOB from baseline -increased needs of oxygen Plan: -methylprednisolone IV q12hr -Xopenex q6hr -vanc, zosyn d/c -Levaquin day 1 and Azithromycin day 1 -sees Dr. Snow outpatient (10) CAD (coronary artery disease) Current Visit: No Status: Chronic Assessment and Plan: Patient has known CAD -no stents, [facility] 2000 Last echo 06/02/15 revealed LVEF 55-60%, mild LV diastolic dysfunction, and no pulmonary HTN. Plan: -Continue home Aspirin, beta tai and statin (11) Elevated troponin Current Visit: Yes Status: Acute Assessment and Plan: Patient presented with elevated troponin level was 0.04 ---> 0.07 ---> 0.03 -EKG revealed sinus tachycardia with no signs of ischemia Type II - demand ischemia -trend troponins -consult cardiology if troponin continues to increase (12) Hypokalemia Current Visit: Yes Status: Resolved Assessment and Plan: K this morning 4.5 -resolved -check CMP in AM (13) UTI (urinary tract infection) Current Visit: Yes Status: Acute Assessment and Plan: UA showed tntc rbc, 50-100 wbc, (+) leukocyte esterase -squamous cells -most likely contaminant, however, will cover -rocephin day 1 - Time Spent with Patient Total time spent is greater than 50% in coordination of care (as documented) at patient's floor/unit and/or counseling patient: less than 15 minutes Plan of Care Discussed with: patient Internal Medicine: Result - Labs CBC & Chem 7: 03/09/18 04:46 03/09/18 04:46 Labs: Short CBC 03/09/18 Range/Units 04:46 WBC 13.9 H (4.3-11.1) K/mcL Hgb 11.3 L (11.5-15.4) g/dL Hct 34.0 L (35.3-44.9) % Plt Count 185 (140-400) K/mcL Neutrophils # 11.5 H (1.6-8.9) K/mcL BMP 03/09/18 04:46 Sodium 135 L Potassium 4.5 Chloride 103 Carbon Dioxide 27 BUN 16 Creatinine 0.76 Glucose 153 H Calcium 9.0 Cardiac Enzymes 03/08/18 Range/Units 10:10 Troponin I 0.03 (< 0.04) ng/mL Liver Function 03/09/18 Range/Units 04:46 Total Bilirubin 0.3 (0.3-1.0) mg/dL AST 51 H (13-39) Units/L ALT 51 (7-52) Units/L Alkaline Phosphatase 64 (34-104) Units/L Albumin 3.6 (3.5-5.7) g/dL - ABG Interpretation ABG results: ABG ABG pH 7.38 pH Units (7.32-7.45) 03/08/18 04:40 ABG pCO2 42 mmHg (35-45) 03/08/18 04:40 ABG pO2 87 mmHg (85-104) 03/08/18 04:40 ABG O2 Saturation 96 % (95-98) 03/08/18 04:40 PT/INR, D-dimer PT 13.6 Seconds (9.4-12.1) H 03/08/18 04:04 Consult Discharge Plan - Plan Referrals: Vladislav Marino MD [Primary Care Provider] - 03/16/18 2:00 pm <Mj Woo - Last Filed: 03/09/18 14:45> Hospitalist Progress Note - Encounter Date of Encounter: 03/09/18 - Exam Vitals: Temp Pulse Resp BP Pulse Ox 98.1 F 88 22 127/79 94 03/09/18 12:20 03/09/18 12:20 03/09/18 12:20 03/09/18 12:20 03/09/18 12:20 - Assessment and Plan (1) Sepsis Current Visit: Yes Status: Acute (2) HTN (hypertension) Current Visit: No Status: Chronic (3) HLD (hyperlipidemia) Current Visit: No Status: Chronic (4) Obesity (BMI 30.0-34.9) Current Visit: No Status: Chronic (5) DVT prophylaxis Current Visit: Yes Status: Acute (6) Acute on chronic respiratory failure with hypoxia and hypercapnia Current Visit: Yes Status: Acute (7) Constipation Current Visit: No Status: Chronic (8) Acute exacerbation of chronic obstructive pulmonary disease (COPD) Current Visit: Yes Status: Acute (9) CAD (coronary artery disease) Current Visit: No Status: Chronic (10) Elevated troponin Current Visit: Yes Status: Acute (11) Hypokalemia Current Visit: Yes Status: Resolved (12) Community acquired pneumonia Current Visit: Yes Status: Acute (13) UTI (urinary tract infection) Current Visit: Yes Status: Acute - Time Spent with Patient Total time spent is greater than 50% in coordination of care (as documented) at patient's floor/unit and/or counseling patient: Internal Medicine: Result - Labs CBC & Chem 7: 03/09/18 04:46 03/09/18 04:46 Labs: Short CBC 03/09/18 Range/Units 04:46 WBC 13.9 H (4.3-11.1) K/mcL Hgb 11.3 L (11.5-15.4) g/dL Hct 34.0 L (35.3-44.9) % Plt Count 185 (140-400) K/mcL Neutrophils # 11.5 H (1.6-8.9) K/mcL BMP 03/09/18 04:46 Sodium 135 L Potassium 4.5 Chloride 103 Carbon Dioxide 27 BUN 16 Creatinine 0.76 Glucose 153 H Calcium 9.0 Liver Function 03/09/18 Range/Units 04:46 Total Bilirubin 0.3 (0.3-1.0) mg/dL AST 51 H (13-39) Units/L ALT 51 (7-52) Units/L Alkaline Phosphatase 64 (34-104) Units/L Albumin 3.6 (3.5-5.7) g/dL - ABG Interpretation ABG results: ABG ABG pH 7.38 pH Units (7.32-7.45) 03/08/18 04:40 ABG pCO2 42 mmHg (35-45) 03/08/18 04:40 ABG pO2 87 mmHg (85-104) 03/08/18 04:40 ABG O2 Saturation 96 % (95-98) 03/08/18 04:40 PT/INR, D-dimer PT 13.6 Seconds (9.4-12.1) H 03/08/18 04:04 - Attending Attestation I examined this patient and my medical decision-making was reviewed with the Resident Physician. I agree with the documented findings, disposition and treatment plan as described except to the extent set forth below. <Bradly Scott - Last Filed: 03/09/18 11:51> (1) Sepsis Qualifiers: Sepsis type: sepsis due to unspecified organism Qualified Code(s): A41.9 - Sepsis, unspecified organism (2) Community acquired pneumonia Qualifiers: Laterality: right Lung location: unspecified part of lung Qualified Code(s) : J18.9 - Pneumonia, unspecified organism (3) HTN (hypertension) Qualifiers: Hypertension type: essential hypertension Qualified Code(s): I10 - Essential (primary) hypertension (4) HLD (hyperlipidemia) Qualifiers: Hyperlipidemia type: unspecified Qualified Code(s): E78.5 - Hyperlipidemia, unspecified (8) Constipation Qualifiers: Constipation type: unspecified constipation type Qualified Code(s): K59.00 - Constipation, unspecified (10) CAD (coronary artery disease) Qualifiers: Coronary Disease-Associated Artery/Lesion type: unspecified vessel or lesion type [place] vs. transplanted heart: [place] heart Associated angina: without angina Qualified Code(s): I25.10 - Atherosclerotic heart disease of [place] coronary artery without angina pectoris (13) UTI (urinary tract infection) Qualifiers: Urinary tract infection type: site unspecified Hematuria presence: without hematuria Qualified Code(s): N39.0 - Urinary tract infection, site not specified <Mj Woo - Last Filed: 03/09/18 14:45> (1) Sepsis Qualifiers: Sepsis type: sepsis due to unspecified organism Qualified Code(s): A41.9 - Sepsis, unspecified organism (2) HTN (hypertension) Qualifiers: Hypertension type: essential hypertension Qualified Code(s): I10 - Essential (primary) hypertension (3) HLD (hyperlipidemia) Qualifiers: Hyperlipidemia type: unspecified Qualified Code(s): E78.5 - Hyperlipidemia, unspecified (7) Constipation Qualifiers: Constipation type: unspecified constipation type Qualified Code(s): K59.00 - Constipation, unspecified (9) CAD (coronary artery disease) Qualifiers: Coronary Disease-Associated Artery/Lesion type: unspecified vessel or lesion type [place] vs. transplanted heart: [place] heart Associated angina: without angina Qualified Code(s): I25.10 - Atherosclerotic heart disease of [place] coronary artery without angina pectoris (12) Community acquired pneumonia Qualifiers: Laterality: right Lung location: unspecified part of lung Qualified Code(s) : J18.9 - Pneumonia, unspecified organism (13) UTI (urinary tract infection) Qualifiers: Urinary tract infection type: site unspecified Hematuria presence: without hematuria Qualified Code(s): N39.0 - Urinary tract infection, site not specified
[2018-03-09] MEDS: cefTRIAXone 1,000 MG in Water for inj. (sterile) 20 ML 10 ML IVP SCH (11:10)
[2018-03-09] MEDS ORDERED: Levofloxacin 750 MG/150 ML 750 MG/150 ML BAG IVPB SCH (18:00)
[2018-03-09] MEDS: Sennosides/Docusate Sodium TABLET PO PRN (20:56)
[2018-03-09] MEDS: Melatonin 3 MG TABLET PO SCH (21:56)
[2018-03-10] MEDS: Acetaminophen 325 MG TABLET PO PRN ×2 (03:50→21:13)
[2018-03-10] MEDS: Levalbuterol Neb 1.25 MG/3 ML IH SCH ×6 (04:29→23:32)
[2018-03-10] MEDS: MethylPREDNISolone 40 MG/ML VIAL IVP SCH (06:40)
[2018-03-10] MEDS: *HR* Heparin 5,000 UNIT/ML VIAL SQ SCH ×3 (06:40→21:03)
[2018-03-10] MEDS: Azithromycin 250 MG TABLET PO SCH (08:02)
[2018-03-10] MEDS: Aspirin Enteric Coated 81 MG Tablet PO SCH (08:02)
[2018-03-10] MEDS: Lisinopril 20 MG TABLET PO SCH (08:02)
[2018-03-10] MEDS: cefTRIAXone 1,000 MG in Water for inj. (sterile) 20 ML 10 ML IVP SCH (08:02)
[2018-03-10] MEDS: Budesonide/Formoterol 160/4.5 1 PUFF INH IH SCH ×2 (08:40→20:35)
[2018-03-10] MEDS: Tiotropium 18 MCG inhalation IH SCH (08:43)
--- NOTE | 2018-03-10 09:40 | Internal Med Progress Note ---
<Zina Richter - Last Filed: 03/10/18 09:37> Hospitalist Progress Note - Encounter Date of Encounter: 03/10/18 Time of Encounter: 09:37 - Subjective Interval History: Mrs. Magaña is a male with a PMH of COPD on 2L O2, CAD, HDL, and HTN who presented to the ED for SOB, fever, and productive cough. Overnight patient wore BIPAP. She feels like her breathing is much better today. She has had improved SOB and was able to lay down last night and sleep through the night. She had a large BM last night. - Exam Vitals: Temp Pulse Resp BP Pulse Ox 97.9 F 65 18 143/90 94 03/10/18 06:48 03/10/18 07:00 03/10/18 08:42 03/10/18 06:48 03/10/18 08:42 Exam: Constitutional: Alert, in no acute distress , mild acute resp distress with minimal excertion Head: Normocephalic, atraumatic Heart: Normal, regular rate and rhythm, no murmurs Lungs: wheezing present diffusely, SOB with talking, supraclavicular retractions with talking, lprolonged expirtory phrase 1:3 Abdomen: Soft, nondistended, nontender, no guarding or rigidity. Extremities: No edema, No clubbing, radial pulse +2/4, capillary refill <2sec. Skin: Skin warm and dry, no lesions, no rashes, no jaundice Neurologic: Cranial nerves II through XII grossly intact, strength 5/5 in all extremities Psych: Cooperative with exam, good eye contact, cognitive function intact, speech clear, thought process logical, and goal directed - Assessment and Plan (1) Sepsis Current Visit: Yes Status: Acute Assessment and Plan: CXR with new sclerotic appearance of the posterior right 10th rib without pleural effusion or focal airspace opacity. Lactic acid 1.9, repeat 1.7. Currently RR: 25-18, on 2L NC. HR wnl. Elevated WBC, slight bump today but on steroids. Fluids have been d/c. Plan: -On Ceftriaxone(day 2) and Azithromycin (day 2). - continue resp support, 2L NC - Levalbuterol Q2H prn , Q4H marc - musinex BID -sputum cx pending (03/08/18) - blood cultures pending (03/08/18) -sepsis bolus given, no fluids currently running (2) HTN (hypertension) Current Visit: No Status: Chronic Assessment and Plan: Stable on home meds. Lopressor 25mg BID, lisinopril 20mg daily, ASA (3) Acute on chronic respiratory failure with hypoxia and hypercapnia Current Visit: Yes Status: Acute Assessment and Plan: 2/2 to pneumonia causing acute COPD exacerbation. Still on 3.5L NC, on 2L at home. Tachypnea at RR:24. Plan: See sepsis. - continue Zopenex Q2H prn, Q4H marc - d/c methylprednisone 40mg IVQ12 - start prednisone 60mg daily - continue home meds fo COPD: Spiriva, Symbicort (4) Acute exacerbation of chronic obstructive pulmonary disease (COPD) Current Visit: Yes Status: Acute Assessment and Plan: See plan above for acute resp failure. Will need outpatient pulmonology appointment. (5) Community acquired pneumonia Current Visit: Yes Status: Acute Assessment and Plan: See plan for sepsis. (6) Constipation Current Visit: No Status: Chronic Assessment and Plan: Patient states BM this morning. Senna PLus prn. (7) Elevated troponin Current Visit: Yes Status: Acute Assessment and Plan: Troponin= max 0.07, decreased to 0.03. Likely due to demand ischemia. EKG revealed sinus tachycardia with no signs of ischemia. [facility] 2000, no stent placed. Last echo 06/02/15 revealed LVEF 55-60%, mild LV diastolic dysfunction, and no pulmonary HTN. Plan: -Continue home Aspirin, beta tai and statin (8) UTI (urinary tract infection) Current Visit: Yes Status: Acute Assessment and Plan: UA showed tntc rbc, 50-100 wbc, (+) leukocyte esterase, negative nitrates. no culture. Plan: -most likely contaminant, however, will cover rocephin day 1 DVT Prophylaxis: Heparin SQ - Time Spent with Patient Total time spent is greater than 50% in coordination of care (as documented) at patient's floor/unit and/or counseling patient: Plan of Care Discussed with: patient Internal Medicine: Result - Labs CBC & Chem 7: 03/09/18 04:46 03/09/18 04:46 - ABG Interpretation ABG results: ABG ABG pH 7.38 pH Units (7.32-7.45) 03/08/18 04:40 ABG pCO2 42 mmHg (35-45) 03/08/18 04:40 ABG pO2 87 mmHg (85-104) 03/08/18 04:40 ABG O2 Saturation 96 % (95-98) 03/08/18 04:40 PT/INR, D-dimer PT 13.6 Seconds (9.4-12.1) H 03/08/18 04:04 Consult Discharge Plan - Plan Referrals: Vladislav glez MD [Primary Care Provider] - 03/16/18 2:00 pm <Mj Woo - Last Filed: 03/10/18 15:12> Hospitalist Progress Note - Encounter Date of Encounter: 03/10/18 - Exam Vitals: Temp Pulse Resp BP Pulse Ox 97.9 F 69 29 162/86 99 03/10/18 10:50 03/10/18 11:00 03/10/18 15:03 03/10/18 15:03 03/10/18 15:03 - Assessment and Plan (1) Sepsis Current Visit: Yes Status: Acute (2) HTN (hypertension) Current Visit: No Status: Chronic (3) HLD (hyperlipidemia) Current Visit: No Status: Chronic (4) Obesity (BMI 30.0-34.9) Current Visit: No Status: Chronic (5) DVT prophylaxis Current Visit: Yes Status: Acute (6) Acute on chronic respiratory failure with hypoxia and hypercapnia Current Visit: Yes Status: Acute (7) Constipation Current Visit: No Status: Chronic (8) Acute exacerbation of chronic obstructive pulmonary disease (COPD) Current Visit: Yes Status: Acute (9) CAD (coronary artery disease) Current Visit: No Status: Chronic (10) Elevated troponin Current Visit: Yes Status: Acute (11) Hypokalemia Current Visit: Yes Status: Resolved (12) Community acquired pneumonia Current Visit: Yes Status: Acute (13) UTI (urinary tract infection) Current Visit: Yes Status: Acute - Time Spent with Patient Total time spent is greater than 50% in coordination of care (as documented) at patient's floor/unit and/or counseling patient: Internal Medicine: Result - Labs CBC & Chem 7: 03/09/18 04:46 03/09/18 04:46 - ABG Interpretation ABG results: ABG ABG pH 7.38 pH Units (7.32-7.45) 03/08/18 04:40 ABG pCO2 42 mmHg (35-45) 03/08/18 04:40 ABG pO2 87 mmHg (85-104) 03/08/18 04:40 ABG O2 Saturation 96 % (95-98) 03/08/18 04:40 PT/INR, D-dimer PT 13.6 Seconds (9.4-12.1) H 03/08/18 04:04 - Attending Attestation I examined this patient and my medical decision-making was reviewed with the Resident Physician. I agree with the documented findings, disposition and treatment plan as described except to the extent set forth below. <Zina Richter - Last Filed: 03/10/18 09:37> (1) Sepsis Qualifiers: Sepsis type: sepsis due to unspecified organism Qualified Code(s): A41.9 - Sepsis, unspecified organism (2) HTN (hypertension) Qualifiers: Hypertension type: essential hypertension Qualified Code(s): I10 - Essential (primary) hypertension (5) Community acquired pneumonia Qualifiers: Laterality: right Lung location: unspecified part of lung Qualified Code(s) : J18.9 - Pneumonia, unspecified organism (6) Constipation Qualifiers: Constipation type: unspecified constipation type Qualified Code(s): K59.00 - Constipation, unspecified (8) UTI (urinary tract infection) Qualifiers: Urinary tract infection type: acute cystitis Hematuria presence: with hematuria Qualified Code(s): N30.01 - Acute cystitis with hematuria <Mj Woo - Last Filed: 03/10/18 15:12> (1) Sepsis Qualifiers: Sepsis type: sepsis due to unspecified organism Qualified Code(s): A41.9 - Sepsis, unspecified organism (2) HTN (hypertension) Qualifiers: Hypertension type: essential hypertension Qualified Code(s): I10 - Essential (primary) hypertension (3) HLD (hyperlipidemia) Qualifiers: Hyperlipidemia type: unspecified Qualified Code(s): E78.5 - Hyperlipidemia, unspecified (7) Constipation Qualifiers: Constipation type: unspecified constipation type Qualified Code(s): K59.00 - Constipation, unspecified (9) CAD (coronary artery disease) Qualifiers: Coronary Disease-Associated Artery/Lesion type: unspecified vessel or lesion type [place] vs. transplanted heart: [place] heart Associated angina: without angina Qualified Code(s): I25.10 - Atherosclerotic heart disease of [place] coronary artery without angina pectoris (12) Community acquired pneumonia Qualifiers: Laterality: right Lung location: unspecified part of lung Qualified Code(s) : J18.9 - Pneumonia, unspecified organism (13) UTI (urinary tract infection) Qualifiers: Urinary tract infection type: site unspecified Hematuria presence: without hematuria Qualified Code(s): N39.0 - Urinary tract infection, site not specified
[2018-03-10] MEDS: Melatonin 3 MG TABLET PO SCH (21:03)
[2018-03-10] MEDS ORDERED: *HR* LORazepam 2 MG/ML VIAL IVP ONE (23:38)
[2018-03-11] MEDS: Levalbuterol Neb 1.25 MG/3 ML IH SCH ×5 (03:42→19:33)
[2018-03-11 03:48] LABS: Basophils # 0.2 K/mcL (0.0-0.2); Basophils % 1.1 %; Eosinophils # 0.1 K/mcL (0.0-0.6); Eosinophils % 0.6 %; Hematocrit 35.2 % (35.3-44.9); Hemoglobin 11.5 g/dL (11.5-15.4); Immature Granulocytes % 4.8 % (0-4); Lymphocytes # 3.4 K/mcL (0.6-4.6); Lymphocytes % 19.6 %; Mean Corpuscular HGB Conc 32.7 g/dL (31.6-35.5); Mean Corpuscular Volume 88.7 fL (83.0-100.0); Mean Platelet Volume 10.8 fL (9.4-12.4); Monocytes # 2.4 K/mcL (0.0-1.3); Monocytes % 14.2 %; Neutrophils # 10.3 K/mcL (1.6-8.9); Platelet Count 236 K/mcL (140-400); Red Blood Count 3.97 M/mcL (3.82-4.97); Red Cell Distribution Width 12.9 % (11.5-14.5); Segmented Neutrophils % 59.7 %
[2018-03-11 04:10] LABS: BUN/Creatinine Ratio 21 (6-26); Blood Urea Nitrogen 16 mg/dL (8-23); Calcium 9.2 mg/dL (8.6-10.3); Carbon Dioxide 29 mEq/L (23-29); Chloride 104 mEq/L (98-107); Glucose 102 mg/dL (70-105); Osmolality,Calculated 291 (280-300); Potassium 4.5 mEq/L (3.5-5.1); Sodium 140 mEq/L (136-145); eGFR For Non-African Americans > 60 (> 60)
[2018-03-11] MEDS: *HR* Heparin 5,000 UNIT/ML VIAL SQ SCH ×3 (05:41→22:24)
[2018-03-11] MEDS: Tiotropium 18 MCG inhalation IH SCH (07:30)
[2018-03-11] MEDS: Budesonide/Formoterol 160/4.5 1 PUFF INH IH SCH ×2 (07:30→19:36)
[2018-03-11] MEDS: predniSONE 20 MG TABLET PO SCH (08:14)
[2018-03-11] MEDS: cefTRIAXone 1,000 MG in Water for inj. (sterile) 20 ML 10 ML IVP SCH (08:14)
[2018-03-11] MEDS: Lisinopril 20 MG TABLET PO SCH (08:14)
[2018-03-11] MEDS: Azithromycin 250 MG TABLET PO SCH (08:14)
[2018-03-11] MEDS: Aspirin Enteric Coated 81 MG Tablet PO SCH (08:14)
--- NOTE | 2018-03-11 10:10 | Internal Med Progress Note ---
<Zina Richter - Last Filed: 03/11/18 10:06> Hospitalist Progress Note - Encounter Date of Encounter: 03/11/18 Time of Encounter: 10:18 - Subjective Interval History: Mrs. Magaña is a male with a PMH of COPD on 2L O2, CAD, HDL, and HTN who presented to the ED for SOB, fever, and productive cough. Overnight no acute events. She states that she feels better this morning and feels less SOB than yesterday. - Exam Vitals: Temp Pulse Resp BP Pulse Ox 97.8 F 80 18 136/86 100 03/11/18 07:25 03/11/18 08:00 03/11/18 07:30 03/11/18 07:25 03/11/18 07:30 Exam: Constitutional: Alert, in no acute distress , mild acute resp distress with minimal excertion Head: Normocephalic, atraumatic Heart: Normal, regular rate and rhythm, no murmurs Lungs: increase air movement heard with full inspiration, wheezing present but less than yesterday, SOB with talking, supraclavicular retractions with talking , prolonged expirtory phrase 1:2 Abdomen: Soft, nondistended, nontender, no guarding or rigidity. Extremities: No edema, No clubbing, radial pulse +2/4, capillary refill <2sec. Skin: Skin warm and dry, no lesions, no rashes, no jaundice Neurologic: Cranial nerves II through XII grossly intact, strength 5/5 in all extremities Psych: Cooperative with exam, good eye contact, cognitive function intact, speech clear, thought process logical, and goal directed - Assessment and Plan (1) Sepsis Current Visit: Yes Status: Acute Assessment and Plan: CXR with new sclerotic appearance of the posterior right 10th rib without pleural effusion or focal airspace opacity. Lactic acid 1.9, repeat 1.7. Currently RR: 25-18, on 2L NC. HR wnl. Elevated WBC, slight bump today but on steroids, patient clinically improving so most likely not due to infectious cause. Fluids have been d/c. Procalcitonin = 2.4, she was at a high risk of progression to severe sepsis , will repeat tomorrow. Plan: -On Ceftriaxone(day 3) and Azithromycin (day 3). - continue resp support, 2L NC - Levalbuterol Q2H prn , Q4H marc - mucinex BID -sputum cx final no growth (03/08/18) - blood cultures pending (03/08/18) -sepsis bolus given, no fluids currently running = - dispo: can probably go home either Monday or Monday depending upon clinical improvement as patient is back to baseline O2, will need to space breathing treatments. (2) Acute on chronic respiratory failure with hypoxia and hypercapnia Current Visit: Yes Status: Acute Assessment and Plan: 2/ to pneumonia causing acute COPD exacerbation. Improved oxygenation, less O2 support needed today 2L NC, home O2 is 2L. Tachypnea resolved while on BIPAP. Plan: See sepsis. - continue Zopenex Q2H prn, Q4H marc, can consider spacing today - d/c methylprednisone 40mg IVQ12 - continue prednisone 60mg daily - continue home meds fo COPD: Spiriva, Symbicort (3) Community acquired pneumonia Current Visit: Yes Status: Acute Assessment and Plan: See plan above for sepsis and acute resp failure. Will need outpatient pulmonology appointment. (4) HTN (hypertension) Current Visit: No Status: Chronic Assessment and Plan: Stable on home meds. Lopressor 25mg BID, lisinopril 20mg daily, ASA (5) Acute exacerbation of chronic obstructive pulmonary disease (COPD) Current Visit: Yes Status: Acute Assessment and Plan: See plan above for acute resp failure. Will need outpatient pulmonology appointment. (6) Constipation Current Visit: No Status: Chronic Assessment and Plan: Resolved. Yesterday, Patient had BM . Senna PLus prn. (7) Elevated troponin Current Visit: Yes Status: Acute Assessment and Plan: Troponin= max 0.07, decreased to 0.03. Likely due to demand ischemia. EKG revealed sinus tachycardia with no signs of ischemia. [facility] 2000, no stent placed. Last echo 06/02/15 revealed LVEF 55-60%, mild LV diastolic dysfunction, and no pulmonary HTN. Plan: -Continue home Aspirin, beta tai and statin (8) Hypokalemia Current Visit: Yes Status: Resolved Assessment and Plan: Resolved. Currently wnl with adequate PO intake. (9) UTI (urinary tract infection) Current Visit: Yes Status: Acute Assessment and Plan: UA showed tntc rbc, 50-100 wbc, (+) leukocyte esterase, negative nitrates. no culture. Plan: -most likely contaminant, however, covered with rocephin day 1 DVT Prophylaxis: Heparin SQ - Time Spent with Patient Total time spent is greater than 50% in coordination of care (as documented) at patient's floor/unit and/or counseling patient: Plan of Care Discussed with: patient Internal Medicine: Result - Labs CBC & Chem 7: 03/11/18 03:34 03/11/18 03:34 Labs: Short CBC 03/11/18 Range/Units 03:34 WBC 17.2 H (4.3-11.1) K/mcL Hgb 11.5 (11.5-15.4) g/dL Hct 35.2 L (35.3-44.9) % Plt Count 236 (140-400) K/mcL Neutrophils # 10.3 H (1.6-8.9) K/mcL BMP 03/11/18 03:34 Sodium 140 Potassium 4.5 Chloride 104 Carbon Dioxide 29 BUN 16 Creatinine 0.75 Glucose 102 Calcium 9.2 - ABG Interpretation ABG results: ABG ABG pH 7.38 pH Units (7.32-7.45) 03/08/18 04:40 ABG pCO2 42 mmHg (35-45) 03/08/18 04:40 ABG pO2 87 mmHg (85-104) 03/08/18 04:40 ABG O2 Saturation 96 % (95-98) 03/08/18 04:40 PT/INR, D-dimer PT 13.6 Seconds (9.4-12.1) H 03/08/18 04:04 Consult Discharge Plan - Plan Referrals: Vladislav Marino MD [Primary Care Provider] - 03/16/18 2:00 pm <Mj Woo - Last Filed: 03/11/18 13:40> Hospitalist Progress Note - Encounter Date of Encounter: 03/11/18 - Exam Vitals: Temp Pulse Resp BP Pulse Ox 97.7 F 105 18 152/77 91 03/11/18 12:02 03/11/18 12:02 03/11/18 12:02 03/11/18 12:02 03/11/18 12:02 - Assessment and Plan (1) Sepsis Current Visit: Yes Status: Acute (2) HTN (hypertension) Current Visit: No Status: Chronic (3) Acute on chronic respiratory failure with hypoxia and hypercapnia Current Visit: Yes Status: Acute (4) Constipation Current Visit: No Status: Chronic (5) Acute exacerbation of chronic obstructive pulmonary disease (COPD) Current Visit: Yes Status: Acute (6) Elevated troponin Current Visit: Yes Status: Acute (7) Hypokalemia Current Visit: Yes Status: Resolved (8) Community acquired pneumonia Current Visit: Yes Status: Acute (9) UTI (urinary tract infection) Current Visit: Yes Status: Acute - Time Spent with Patient Total time spent is greater than 50% in coordination of care (as documented) at patient's floor/unit and/or counseling patient: Internal Medicine: Result - Labs CBC & Chem 7: 03/11/18 03:34 03/11/18 03:34 Labs: Short CBC 03/11/18 Range/Units 03:34 WBC 17.2 H (4.3-11.1) K/mcL Hgb 11.5 (11.5-15.4) g/dL Hct 35.2 L (35.3-44.9) % Plt Count 236 (140-400) K/mcL Neutrophils # 10.3 H (1.6-8.9) K/mcL BMP 03/11/18 03:34 Sodium 140 Potassium 4.5 Chloride 104 Carbon Dioxide 29 BUN 16 Creatinine 0.75 Glucose 102 Calcium 9.2 - ABG Interpretation ABG results: ABG ABG pH 7.38 pH Units (7.32-7.45) 03/08/18 04:40 ABG pCO2 42 mmHg (35-45) 03/08/18 04:40 ABG pO2 87 mmHg (85-104) 03/08/18 04:40 ABG O2 Saturation 96 % (95-98) 03/08/18 04:40 PT/INR, D-dimer PT 13.6 Seconds (9.4-12.1) H 03/08/18 04:04 - Attending Attestation I examined this patient and my medical decision-making was reviewed with the Resident Physician. I agree with the documented findings, disposition and treatment plan as described except to the extent set forth below. <Zina Richter - Last Filed: 03/11/18 10:06> (1) Sepsis Qualifiers: Sepsis type: sepsis due to unspecified organism Qualified Code(s): A41.9 - Sepsis, unspecified organism (3) Community acquired pneumonia Qualifiers: Laterality: right Lung location: unspecified part of lung Qualified Code(s) : J18.9 - Pneumonia, unspecified organism (4) HTN (hypertension) Qualifiers: Hypertension type: essential hypertension Qualified Code(s): I10 - Essential (primary) hypertension (6) Constipation Qualifiers: Constipation type: unspecified constipation type Qualified Code(s): K59.00 - Constipation, unspecified (9) UTI (urinary tract infection) Qualifiers: Urinary tract infection type: site unspecified Hematuria presence: without hematuria Qualified Code(s): N39.0 - Urinary tract infection, site not specified <Mj Woo - Last Filed: 03/11/18 13:40> (1) Sepsis Qualifiers: Sepsis type: sepsis due to unspecified organism Qualified Code(s): A41.9 - Sepsis, unspecified organism (2) HTN (hypertension) Qualifiers: Hypertension type: essential hypertension Qualified Code(s): I10 - Essential (primary) hypertension (4) Constipation Qualifiers: Constipation type: unspecified constipation type Qualified Code(s): K59.00 - Constipation, unspecified (8) Community acquired pneumonia Qualifiers: Laterality: right Lung location: unspecified part of lung Qualified Code(s) : J18.9 - Pneumonia, unspecified organism (9) UTI (urinary tract infection) Qualifiers: Urinary tract infection type: site unspecified Hematuria presence: without hematuria Qualified Code(s): N39.0 - Urinary tract infection, site not specified
[2018-03-11] MEDS ORDERED: Levalbuterol Neb 1.25 MG/3 ML IH PRN (12:47)
[2018-03-11] MEDS ORDERED: *HR* LORazepam 2 MG/ML VIAL IVP ONE (20:38)
[2018-03-11] MEDS: Melatonin 3 MG TABLET PO SCH (22:25)
[2018-03-11] MEDS: Sennosides/Docusate Sodium TABLET PO PRN (22:25)
[2018-03-12] MEDS: Levalbuterol Neb 1.25 MG/3 ML IH SCH ×6 (04:13→23:57)
[2018-03-12 05:12] LABS: Hemoglobin 11.8 g/dL (11.5-15.4); Mean Corpuscular HGB Conc 32.8 g/dL (31.6-35.5); Mean Corpuscular Hemoglobin 29.2 pg (28.0-33.3); Mean Corpuscular Volume 89.1 fL (83.0-100.0); Mean Platelet Volume 10.8 fL (9.4-12.4); Nucleated Red Blood Cells 0.1 /100 WBC (0); Platelet Count 265 K/mcL (140-400); Red Blood Count 4.04 M/mcL (3.82-4.97)
[2018-03-12 05:36] LABS: BUN/Creatinine Ratio 24 (6-26); Blood Urea Nitrogen 18 mg/dL (8-23); Calcium 9.4 mg/dL (8.6-10.3); Carbon Dioxide 33 mEq/L (23-29); Chloride 99 mEq/L (98-107); Glucose 95 mg/dL (70-105); Osmolality,Calculated 288 (280-300); Potassium 4.2 mEq/L (3.5-5.1); Sodium 138 mEq/L (136-145); eGFR For Non-African Americans > 60 (> 60)
[2018-03-12] MEDS: *HR* Heparin 5,000 UNIT/ML VIAL SQ SCH ×3 (06:26→22:05)
[2018-03-12 06:33] LABS: Lymphocytes # 4.6 K/mcL (0.6-4.6); Monocytes # 1.7 K/mcL (0.0-1.3); Neutrophils # 10.2 K/mcL (1.6-8.9); Platelet Estimate Normal (Normal); Reactive Lymphocytes Present (Not Present)
[2018-03-12] MEDS: Azithromycin 250 MG TABLET PO SCH (08:50)
[2018-03-12] MEDS: predniSONE 20 MG TABLET PO SCH (08:50)
[2018-03-12] MEDS: Aspirin Enteric Coated 81 MG Tablet PO SCH (08:51)
[2018-03-12] MEDS: Lisinopril 20 MG TABLET PO SCH (08:51)
[2018-03-12] MEDS: cefTRIAXone 1,000 MG in Water for inj. (sterile) 20 ML 10 ML IVP SCH (08:51)
[2018-03-12] MEDS: Budesonide/Formoterol 160/4.5 1 PUFF INH IH SCH ×2 (09:18→21:21)
[2018-03-12] MEDS: Tiotropium 18 MCG inhalation IH SCH (09:19)
--- NOTE | 2018-03-12 09:24 | Internal Med Progress Note ---
<Bradly Scott S - Last Filed: 03/12/18 11:35> Hospitalist Progress Note - Encounter Date of Encounter: 03/12/18 Time of Encounter: 09:20 - Subjective Interval History: Ms. Magaña is a 67yo female with a PMH of COPD requring 2L O2 throughout the day , CAD, HDL, HTN and obesity. She presented on 03/07 with increasing SOB from baseline, subjective fevers and increase in olive green sputum production for the last 48hrs. She states she has been increasingly having upper URI s/s over the last 3-4 weeks and then suddenly began to feel worse. She has been caring for her daughter who recently had a stroke. Of note, she told the night resident that she was staying at a retirement but I clarfieid this with her and she states the daughter lives at home. The pt was found to be O2 sat in the 60's by EMS , which improved with oxygen and albuterol inhaler. -initial temprature was 101.2*F and heart rate was 170, which improved with BiPAP to the 120's Pt continues to have difficulty breathing, speaking in full sentences. Acute episode of SOB this morning when she went to go to the bathroom. Started to have extreme difficulty in breathing and couldn't catch her breath -The pt denies chest pain, palpitations, N/V/D, abd pain. -was unable to lie flat on back completely and had to sleep sitting slightly up -still coughing up sputum - Exam Vitals: Temp Pulse Resp BP Pulse Ox 98.5 F 82 20 166/80 93 03/12/18 07:10 03/12/18 07:10 03/12/18 07:10 03/12/18 07:10 03/12/18 07:10 Exam: Constitutional: Alert, in no acute distress , mild acute resp distress with minimal excertion, unable to speak in full sentences Head: Normocephalic, atraumatic Heart: Normal, regular rate and rhythm, no murmurs Lungs: increase air movement heard with full inspiration, wheezing present but less than yesterday, SOB with talking, supraclavicular retractions with talking , prolonged expirtory phrase 1:2 Abdomen: Soft, nondistended, nontender, no guarding or rigidity. Extremities: No edema, No clubbing, radial pulse +2/4, capillary refill <2sec. Skin: Skin warm and dry, no lesions, no rashes, no jaundice Neurologic: no FND Psych: Cooperative with exam - Assessment and Plan (1) Sepsis Current Visit: Yes Status: Acute Assessment and Plan: On admission pt met sepsis criteria with leukocytosis 16.6, HR 162, t max 101.2 -CXR with new sclerotic appearance of the posterior right 10th rib without pleural effusion or focal airspace opacity. -Lactic acid 1.9, repeat 1.7. -Procalcitonin 2.4, repeat pending Currently meet sepsis criteria based on RR and WBC count HR 82, RR 20 WBC 16.5 (likely 2/2 steroids) Sputum cx showed no growth Legionella and S pneumo antigens negative Plan: -On Ceftriaxone(day 4) and Azithromycin (day 4). - continue resp support, 2L NC - Levalbuterol Q2H prn , Q4H marc - mucinex BID - blood cultures pending (03/08/18) -sepsis bolus given, no fluids currently running - restart solumedrol 40mg q12hr, d/c PO prednisone - one time dose 40mg lasix ivp - dispo: can probably go home tomorrow depending upon clinical improvement as patient is back to baseline O2, will need to space breathing treatments. (2) HTN (hypertension) Current Visit: No Status: Chronic Assessment and Plan: BP this AM 166/80 -likely increased 2/2 anxiety from ISAURA -Lopressor 25mg BID, lisinopril 20mg daily, ASA (3) Acute on chronic respiratory failure with hypoxia and hypercapnia Current Visit: Yes Status: Acute Assessment and Plan: Patient presents with acute respiratory failure -Patient usually wears 2 L of oxygen during the day, had to turn it up to 4L -ABG reviewed, reveals pH 7.33, pCO2 62, pO2 122, HCO3 32, and O2 sat 98% while on Bipap -ABG the morning of 03/08 is pH 7.38, pCO2 42, pO2 87, HCO3 33 2/2 to pneumonia causing acute COPD exacerbation. Improved oxygenation, less O2 support needed today 2L NC, home O2 is 2L. Tachypnea resolved while on BIPAP. This morning pt had SOB when she went to the bathroom, unable to catch breath or speak in full sentences. Nurse placed on BiPAP Plan: See sepsis. - continue Zopenex Q2H prn, Q4H marc - restart methylprednisone 40mg IVQ12 - discontinue prednisone 60mg -one time dose of Lasix 40mg IVP - continue home meds fo COPD: Spiriva, Symbicort - have nursing staff do qualification to see if pt qualifies for BiPAP at home (4) Constipation Current Visit: No Status: Chronic Assessment and Plan: Senna plus prn (5) Acute exacerbation of chronic obstructive pulmonary disease (COPD) Current Visit: Yes Status: Acute Assessment and Plan: See plan above for acute resp failure. Will need outpatient pulmonology appointment. (6) Elevated troponin Current Visit: Yes Status: Acute Assessment and Plan: Troponin= max 0.07, decreased to 0.03. Likely due to demand ischemia. EKG revealed sinus tachycardia with no signs of ischemia. [facility] 2000, no stent placed. Last echo 06/02/15 revealed LVEF 55-60%, mild LV diastolic dysfunction, and no pulmonary HTN. 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 Currently wnl with adequate PO intake. -d/c potassium supplement (8) Community acquired pneumonia Current Visit: Yes Status: Acute Assessment and Plan: See plan above for sepsis and acute resp failure. Will need outpatient pulmonology appointment. (9) HLD (hyperlipidemia) Current Visit: No Status: Chronic Assessment and Plan: Resume home statin (10) Obesity (BMI 30.0-34.9) Current Visit: No Status: Chronic Assessment and Plan: BMI 31.3, lifestyle modification (11) UTI (urinary tract infection) Current Visit: Yes Status: Acute Assessment and Plan: UA showed tntc rbc, 50-100 wbc, (+) leukocyte esterase, negative nitrates. no culture. Plan: -most likely contaminant, however, covered with rocephin day 3 DVT Prophylaxis: Heparin SQ - Time Spent with Patient Total time spent is greater than 50% in coordination of care (as documented) at patient's floor/unit and/or counseling patient: less than 15 minutes Plan of Care Discussed with: patient Internal Medicine: Result - Labs CBC & Chem 7: 03/12/18 04:52 03/12/18 04:52 Labs: Short CBC 03/12/18 Range/Units 04:52 WBC 16.5 H (4.3-11.1) K/mcL Hgb 11.8 (11.5-15.4) g/dL Hct 36.0 (35.3-44.9) % Plt Count 265 (140-400) K/mcL Neutrophils # 10.2 H (1.6-8.9) K/mcL BMP 03/12/18 04:52 Sodium 138 Potassium 4.2 Chloride 99 Carbon Dioxide 33 H BUN 18 Creatinine 0.76 Glucose 95 Calcium 9.4 - ABG Interpretation ABG results: ABG ABG pH 7.38 pH Units (7.32-7.45) 03/08/18 04:40 ABG pCO2 42 mmHg (35-45) 03/08/18 04:40 ABG pO2 87 mmHg (85-104) 03/08/18 04:40 ABG O2 Saturation 96 % (95-98) 03/08/18 04:40 PT/INR, D-dimer PT 13.6 Seconds (9.4-12.1) H 03/08/18 04:04 Consult Discharge Plan - Plan [facility] [place] [facility] Care Provider[facility] - 03/16/18 2:00 pm <Mj Woo - Last Filed: 03/12/18 17:20> Hospitalist Progress Note - Encounter Date of Encounter: 03/12/18 - Exam Vitals: Temp Pulse Resp BP Pulse Ox 97.9 F 86 18 132/95 93 03/12/18 16:04 03/12/18 16:04 03/12/18 16:20 03/12/18 16:04 03/12/18 16:20 - Assessment and Plan (1) Sepsis Current Visit: Yes Status: Acute (2) HTN (hypertension) Current Visit: No Status: Chronic (3) HLD (hyperlipidemia) Current Visit: No Status: Chronic (4) Obesity (BMI 30.0-34.9) Current Visit: No Status: Chronic (5) Acute on chronic respiratory failure with hypoxia and hypercapnia Current Visit: Yes Status: Acute (6) Constipation Current Visit: No Status: Chronic (7) Acute exacerbation of chronic obstructive pulmonary disease (COPD) Current Visit: Yes Status: Acute (8) Elevated troponin Current Visit: Yes Status: Acute (9) Hypokalemia Current Visit: Yes Status: Resolved (10) Community acquired pneumonia Current Visit: Yes Status: Acute (11) UTI (urinary tract infection) Current Visit: Yes Status: Acute - Time Spent with Patient Total time spent is greater than 50% in coordination of care (as documented) at patient's floor/unit and/or counseling patient: Internal Medicine: Result - Labs CBC & Chem 7: 03/12/18 04:52 03/12/18 04:52 Labs: Short CBC 03/12/18 Range/Units 04:52 WBC 16.5 H (4.3-11.1) K/mcL Hgb 11.8 (11.5-15.4) g/dL Hct 36.0 (35.3-44.9) % Plt Count 265 (140-400) K/mcL Neutrophils # 10.2 H (1.6-8.9) K/mcL BMP 03/12/18 04:52 Sodium 138 Potassium 4.2 Chloride 99 Carbon Dioxide 33 H BUN 18 Creatinine 0.76 Glucose 95 Calcium 9.4 - ABG Interpretation ABG results: ABG ABG pH 7.38 pH Units (7.32-7.45) 03/08/18 04:40 ABG pCO2 42 mmHg (35-45) 03/08/18 04:40 ABG pO2 87 mmHg (85-104) 03/08/18 04:40 ABG O2 Saturation 96 % (95-98) 03/08/18 04:40 PT/INR, D-dimer PT 13.6 Seconds (9.4-12.1) H 03/08/18 04:04 - Attending Attestation I examined this patient and my medical decision-making was reviewed with the Resident Physician. I agree with the documented findings, disposition and treatment plan as described except to the extent set forth below. <Bradly Scott - Last Filed: 03/12/18 11:35> (1) Sepsis Qualifiers: Sepsis type: sepsis due to unspecified organism Qualified Code(s): A41.9 - Sepsis, unspecified organism (2) HTN (hypertension) Qualifiers: Hypertension type: essential hypertension Qualified Code(s): I10 - Essential (primary) hypertension (4) Constipation Qualifiers: Constipation type: unspecified constipation type Qualified Code(s): K59.00 - Constipation, unspecified (8) Community acquired pneumonia Qualifiers: Laterality: right Lung location: unspecified part of lung Qualified Code(s) : J18.9 - Pneumonia, unspecified organism (9) HLD (hyperlipidemia) Qualifiers: Hyperlipidemia type: unspecified Qualified Code(s): E78.5 - Hyperlipidemia, unspecified (11) UTI (urinary tract infection) Qualifiers: Urinary tract infection type: site unspecified Hematuria presence: without hematuria Qualified Code(s): N39.0 - Urinary tract infection, site not specified <DarrenjaredisatuOfekenia - Last Filed: 03/12/18 17:20> (1) Sepsis Qualifiers: Sepsis type: sepsis due to unspecified organism Qualified Code(s): A41.9 - Sepsis, unspecified organism (2) HTN (hypertension) Qualifiers: Hypertension type: essential hypertension Qualified Code(s): I10 - Essential (primary) hypertension (3) HLD (hyperlipidemia) Qualifiers: Hyperlipidemia type: unspecified Qualified Code(s): E78.5 - Hyperlipidemia, unspecified (6) Constipation Qualifiers: Constipation type: unspecified constipation type Qualified Code(s): K59.00 - Constipation, unspecified (10) Community acquired pneumonia Qualifiers: Laterality: right Lung location: unspecified part of lung Qualified Code(s) : J18.9 - Pneumonia, unspecified organism (11) UTI (urinary tract infection) Qualifiers: Urinary tract infection type: site unspecified Hematuria presence: without hematuria Qualified Code(s): N39.0 - Urinary tract infection, site not specified
[2018-03-12] MEDS ORDERED: Furosemide 20 MG/2 ML VIAL IVP ONE (11:42)
[2018-03-12] MEDS: Acetaminophen 325 MG TABLET PO PRN (14:11)
[2018-03-12] MEDS: MethylPREDNISolone 40 MG/ML VIAL IVP SCH (16:34)
[2018-03-12] MEDS: Melatonin 3 MG TABLET PO SCH (22:05)
[2018-03-13] MEDS: Sennosides/Docusate Sodium TABLET PO PRN (00:17)
[2018-03-13] MEDS: Acetaminophen 325 MG TABLET PO PRN ×2 (03:50→23:05)
[2018-03-13] MEDS: Levalbuterol Neb 1.25 MG/3 ML IH SCH ×6 (04:26→23:38)
[2018-03-13] MEDS: MethylPREDNISolone 40 MG/ML VIAL IVP SCH ×2 (05:25→17:39)
[2018-03-13] MEDS: *HR* Heparin 5,000 UNIT/ML VIAL SQ SCH ×3 (05:26→20:32)
[2018-03-13 05:44] LABS: Hematocrit 38.3 % (35.3-44.9); Hemoglobin 12.5 g/dL (11.5-15.4); Mean Corpuscular HGB Conc 32.6 g/dL (31.6-35.5); Mean Corpuscular Hemoglobin 29.2 pg (28.0-33.3); Mean Corpuscular Volume 89.5 fL (83.0-100.0); Monocytes # 1.8 K/mcL (0.0-1.3); Nucleated Red Blood Cells 0.1 /100 WBC (0); Platelet Count 276 K/mcL (140-400); Red Blood Count 4.28 M/mcL (3.82-4.97); Red Cell Distribution Width 12.6 % (11.5-14.5)
[2018-03-13 06:03] LABS: Alanine Aminotransferase 56 Units/L (7-52); Albumin 3.6 g/dL (3.5-5.7); Albumin/Globulin Ratio 1.3 (1.1-2.2); Alkaline Phosphatase 67 Units/L (34-104); Aspartate Amino Transferase 26 Units/L (13-39); BUN/Creatinine Ratio 27 (6-26); Bilirubin,Total 0.3 mg/dL (0.3-1.0); Blood Urea Nitrogen 21 mg/dL (8-23); Calcium 9.6 mg/dL (8.6-10.3); Carbon Dioxide 35 mEq/L (23-29); Chloride 96 mEq/L (98-107); Globulin 2.7 g/dL (2.4-3.5); Glucose 130 mg/dL (70-105); Osmolality,Calculated 289 (280-300); Potassium 3.9 mEq/L (3.5-5.1); Sodium 137 mEq/L (136-145); Total Protein 6.3 g/dL (6.4-8.9); eGFR For Non-African Americans > 60 (> 60)
[2018-03-13 06:11] LABS: Neutrophils # 16.5 K/mcL (1.6-8.9)
[2018-03-13 06:12] LABS: Platelet Estimate Normal (Normal)
[2018-03-13] MEDS: Tiotropium 18 MCG inhalation IH SCH (07:36)
[2018-03-13] MEDS: Budesonide/Formoterol 160/4.5 1 PUFF INH IH SCH ×2 (07:36→19:54)
[2018-03-13] MEDS: Aspirin Enteric Coated 81 MG Tablet PO SCH (08:08)
[2018-03-13] MEDS: Lisinopril 20 MG TABLET PO SCH (08:08)
[2018-03-13] MEDS: Azithromycin 250 MG TABLET PO SCH (08:08)
[2018-03-13] MEDS: cefTRIAXone 1,000 MG in Water for inj. (sterile) 20 ML 10 ML IVP SCH (08:08)
--- NOTE | 2018-03-13 08:21 | Internal Med Progress Note ---
<Bradly Scott S - Last Filed: 03/13/18 11:31> Hospitalist Progress Note - Encounter Date of Encounter: 03/13/18 Time of Encounter: 08:19 - Subjective Interval History: Ms. Magaña is a 67yo female with a PMH of COPD requring 2L O2 throughout the day , CAD, HDL, HTN and obesity. She presented on 03/07 with increasing SOB from baseline, subjective fevers and increase in olive green sputum production for the last 48hrs. She states she has been increasingly having upper URI s/s over the last 3-4 weeks and then suddenly began to feel worse. She has been caring for her daughter who recently had a stroke. Of note, she told the night resident that she was staying at a jail but I clarfieid this with her and she states the daughter lives at home. The pt was found to be O2 sat in the 60's by EMS , which improved with oxygen and albuterol inhaler. -initial temprature was 101.2*F and heart rate was 170, which improved with BiPAP to the 120's Pt continues to have difficulty breathing -nurses report that when she gets up to go to the bathroom, she has acute episodes of SOB -still has some difficulty in speaking in full sentences, coughing a lot -decreases sputum production -having an easier time laying flat - Exam Vitals: Temp Pulse Resp BP Pulse Ox 97.9 F 95 18 144/50 92 03/13/18 06:36 03/13/18 06:36 03/13/18 07:39 03/13/18 06:36 03/13/18 08:18 Exam: Constitutional: Alert, in no acute distress , mild acute resp distress with minimal excertion, unable to speak in full sentences Head: Normocephalic, atraumatic Heart: Normal, regular rate and rhythm, no murmurs Lungs: decreased air movement heard with full inspiration, wheezing present but less than yesterday, SOB with talking, supraclavicular retractions with talking , prolonged expirtory phrase 1:2 Abdomen: Soft, nondistended, nontender, obese Extremities: No edema, No clubbing, radial pulse +2/4, capillary refill <2sec. Skin: Skin warm and dry, no lesions, no rashes, no jaundice Neurologic: no FND Psych: Cooperative with exam - Assessment and Plan (1) Sepsis Current Visit: Yes Status: Acute Assessment and Plan: On admission pt met sepsis criteria with leukocytosis 16.6, HR 162, t max 101.2 -CXR with new sclerotic appearance of the posterior right 10th rib without pleural effusion or focal airspace opacity. -Lactic acid 1.9, repeat 1.7. -Procalcitonin 2.4, repeat pending Currently meet sepsis criteria based on RR and WBC count HR 113, RR 20 WBC 22.3 (likely 2/2 steroids) Sputum cx showed no growth Legionella and S pneumo antigens negative Blood cx showed no growth Plan: -On Ceftriaxone(day 5) - discontinue Azithromycin today (day 5). - continue resp support, 2L NC - Levalbuterol Q2H prn , Q4H marc - mucinex BID -sepsis bolus given, no fluids currently running - restart solumedrol 40mg q12hr, d/c PO prednisone - one time dose 40mg lasix ivp (03/13) - check CT scan of chest - dispo: depends on clinical improvement. At this time the pt is not at baseline breathing and is back on IV steroids. She is at baseline O2 flow rate. (2) HTN (hypertension) Current Visit: No Status: Chronic Assessment and Plan: BP this AM 144/50 -likely increased 2/2 anxiety from [facility] -Lopressor 25mg BID, lisinopril 20mg daily, ASA (3) Acute on chronic respiratory failure with hypoxia and hypercapnia Current Visit: Yes Status: Acute Assessment and Plan: Patient presents with acute respiratory failure -Patient usually wears 2 L of oxygen during the day, had to turn it up to 4L -ABG reviewed, reveals pH 7.33, pCO2 62, pO2 122, HCO3 32, and O2 sat 98% while on Bipap -ABG the morning of 03/08 is pH 7.38, pCO2 42, pO2 87, HCO3 33 2/2 to pneumonia causing acute COPD exacerbation. Improved oxygenation, less O2 support needed today 2L NC, home O2 is 2L. Tachypnea resolved while on BIPAP. This morning pt had SOB when she went to the bathroom, unable to catch breath or speak in full sentences. Nurse placed on BiPAP Plan: See sepsis. - continue Zopenex Q2H prn, Q4H marc - restarted methylprednisone 40mg IVQ12 9/17/18 - discontinue prednisone 60mg -one time dose of Lasix 40mg IVP given 03/12 - continue home meds for COPD: Spiriva, Symbicort - CT scan of chest (4) Constipation Current Visit: No Status: Resolved Assessment and Plan: Senna plus prn (5) Acute exacerbation of chronic obstructive pulmonary disease (COPD) Current Visit: Yes Status: Acute Assessment and Plan: See plan above for acute resp failure. Will need outpatient pulmonology appointment. (6) Elevated troponin Current Visit: Yes Status: Acute Assessment and Plan: Troponin= max 0.07, decreased to 0.03. Likely due to demand ischemia. EKG revealed sinus tachycardia with no signs of ischemia. [facility] 2000, no stent placed. Last echo 06/02/15 revealed LVEF 55-60%, mild LV diastolic dysfunction, and no pulmonary HTN. 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 Currently wnl with adequate PO intake. -d/c potassium supplement (8) Community acquired pneumonia Current Visit: Yes Status: Acute Assessment and Plan: See plan above for sepsis and acute resp failure. Will need outpatient pulmonology appointment. (9) HLD (hyperlipidemia) Current Visit: No Status: Chronic Assessment and Plan: Resume home statin (10) Obesity (BMI 30.0-34.9) Current Visit: No Status: Chronic Assessment and Plan: BMI 31.3, lifestyle modification (11) UTI (urinary tract infection) Current Visit: Yes Status: Acute Assessment and Plan: UA showed tntc rbc, 50-100 wbc, (+) leukocyte esterase, negative nitrates. no culture. Plan: -most likely contaminant, however, covered with rocephin day 5 DVT Prophylaxis: Heparin SQ - Time Spent with Patient Total time spent is greater than 50% in coordination of care (as documented) at patient's floor/unit and/or counseling patient: less than 15 minutes Plan of Care Discussed with: patient Internal Medicine: Result - Labs CBC & Chem 7: 03/13/18 05:19 03/13/18 05:19 Labs: Short CBC 03/13/18 Range/Units 05:19 WBC 22.3 H (4.3-11.1) K/mcL Hgb 12.5 (11.5-15.4) g/dL Hct 38.3 (35.3-44.9) % Plt Count 276 (140-400) K/mcL Neutrophils # 16.5 H (1.6-8.9) K/mcL BMP 03/13/18 05:19 Sodium 137 Potassium 3.9 Chloride 96 L Carbon Dioxide 35 H BUN 21 Creatinine 0.79 Glucose 130 H Calcium 9.6 Liver Function 03/13/18 Range/Units 05:19 Total Bilirubin 0.3 (0.3-1.0) mg/dL AST 26 (13-39) Units/L ALT 56 H (7-52) Units/L Alkaline Phosphatase 67 (34-104) Units/L Albumin 3.6 (3.5-5.7) g/dL - ABG Interpretation ABG results: ABG ABG pH 7.38 pH Units (7.32-7.45) 03/08/18 04:40 ABG pCO2 42 mmHg (35-45) 03/08/18 04:40 ABG pO2 87 mmHg (85-104) 03/08/18 04:40 ABG O2 Saturation 96 % (95-98) 03/08/18 04:40 PT/INR, D-dimer PT 13.6 Seconds (9.4-12.1) H 03/08/18 04:04 Consult Discharge Plan - Plan Referrals: Vladislav Marino MD [Primary Care Provider] - 03/16/18 2:00 pm <Amador Lugo - Last Filed: 03/13/18 15:34> Hospitalist Progress Note - Encounter Date of Encounter: 03/13/18 - Exam Vitals: Temp Pulse Resp BP Pulse Ox 98.0 F 75 19 124/71 94 03/13/18 11:30 03/13/18 12:16 03/13/18 11:30 03/13/18 11:30 03/13/18 11:30 - Assessment and Plan (1) Sepsis Current Visit: Yes Status: Acute (2) HTN (hypertension) Current Visit: No Status: Chronic (3) HLD (hyperlipidemia) Current Visit: No Status: Chronic (4) Obesity (BMI 30.0-34.9) Current Visit: No Status: Chronic (5) Acute on chronic respiratory failure with hypoxia and hypercapnia Current Visit: Yes Status: Acute (6) Constipation Current Visit: No Status: Resolved (7) Acute exacerbation of chronic obstructive pulmonary disease (COPD) Current Visit: Yes Status: Acute (8) Elevated troponin Current Visit: Yes Status: Acute (9) Hypokalemia Current Visit: Yes Status: Resolved (10) Community acquired pneumonia Current Visit: Yes Status: Acute (11) UTI (urinary tract infection) Current Visit: Yes Status: Acute - Time Spent with Patient Total time spent is greater than 50% in coordination of care (as documented) at patient's floor/unit and/or counseling patient: Internal Medicine: Result - Labs CBC & Chem 7: 03/13/18 05:19 03/13/18 05:19 Labs: Short CBC 03/13/18 Range/Units 05:19 WBC 22.3 H (4.3-11.1) K/mcL Hgb 12.5 (11.5-15.4) g/dL Hct 38.3 (35.3-44.9) % Plt Count 276 (140-400) K/mcL Neutrophils # 16.5 H (1.6-8.9) K/mcL BMP 03/13/18 05:19 Sodium 137 Potassium 3.9 Chloride 96 L Carbon Dioxide 35 H BUN 21 Creatinine 0.79 Glucose 130 H Calcium 9.6 Liver Function 03/13/18 Range/Units 05:19 Total Bilirubin 0.3 (0.3-1.0) mg/dL AST 26 (13-39) Units/L ALT 56 H (7-52) Units/L Alkaline Phosphatase 67 (34-104) Units/L Albumin 3.6 (3.5-5.7) g/dL - ABG Interpretation ABG results: ABG ABG pH 7.38 pH Units (7.32-7.45) 03/08/18 04:40 ABG pCO2 42 mmHg (35-45) 03/08/18 04:40 ABG pO2 87 mmHg (85-104) 03/08/18 04:40 ABG O2 Saturation 96 % (95-98) 03/08/18 04:40 PT/INR, D-dimer PT 13.6 Seconds (9.4-12.1) H 03/08/18 04:04 - Impressions Impressions Chest CT 03/13/18 13:00 IMPRESSION: No focal consolidation. Small focus of nodular opacities within the left lower lobe is suspected to be infectious. Nonspecific 7 mm right lower lobe nodular opacity. RECOMMENDATIONS: Fleischner Society guidelines for follow-up and management of incidentally detected pulmonary nodules: Multiple Solid Nodules: Nodule size equals 6-8 mm In a low-risk patient, CT at 3-6 months, then consider CT at 18-24 months. In a high-risk patient, CT at 3-6 months, then CT at 18-24 months. Nodule size greater than 8 mm In a low-risk patient, CT at 3-6 months, then consider CT at 18-24 months. In a high-risk patient, CT at 3-6 months, then CT at 18-24 months. - Low risk patients include individuals with minimal or absent history of smoking and other known risk factors. - High risk patients include individuals with a history or smoking or known risk factors. Radiology 2017 http://pubs.rsna.org/doi/full/[email or web address] D/ / 03/13/2018 14:15:34 Alexander Ryan MD / rochelle Interpreting Provider: Alexander Ryan MD - Attending Attestation I examined this patient and my medical decision-making was reviewed with the Resident Physician Dr. Scott. I agree with the documented findings, disposition and treatment plan as described except to the extent set forth below. Ms. Magaña is a 67 year old female with a PMH of COPD with 2 L continuous supplemental home oxygen dependence throughout the day, CAD, hypertension, hyperlipidemia, and obesity who presented c/o SOB, fever, and green-yellow sputum production for the past 2 days. Patient was admitted in the hospital and started her on broad-spectrum antibiotic, as well as high-dose IV steroids. Patient stated that she is feeling little better today she still having moderate dyspnea on exertion. Gen: A, A, O x 3 Chest : Diminished BS b/l no crackles, mild to moderate wheezing Heart; S1S2+ sinus tachycardia a/p 1. Sepsis with Pneumonia 2. Acute on chronic hypoxic resp failure 3. Acute COPD exacerbation 4. Pneumonia - mostly bacterial even after finishing Monday suffer antibiotic Rocephin and azithromycin patient still seems to be more symptomatic her white count started trending up so did get her CT of the chest which showed few nodular opacities in the left lower lobe suspected infectious also showed7 mm right lower lobe nodule changed to broad spec antibiotic Zosyn and Vanc already finished atypical coverage course Azithromycin for 5 days continue close monitoring medically stable transfer to [facility]. Sclerotic lesion on CXR CT of Chest did not show any lesions however with her lung nodule and previous history of heavy smoking definitely need close monitoring of these nodule <Bradly Scott S - Last Filed: 03/13/18 11:31> (1) Sepsis Qualifiers: Sepsis type: sepsis due to unspecified organism Qualified Code(s): A41.9 - Sepsis, unspecified organism (2) HTN (hypertension) Qualifiers: Hypertension type: essential hypertension Qualified Code(s): I10 - Essential (primary) hypertension (4) Constipation Qualifiers: Constipation type: unspecified constipation type Qualified Code(s): K59.00 - Constipation, unspecified (8) Community acquired pneumonia Qualifiers: Laterality: right Lung location: unspecified part of lung Qualified Code(s) : J18.9 - Pneumonia, unspecified organism (9) HLD (hyperlipidemia) Qualifiers: Hyperlipidemia type: unspecified Qualified Code(s): E78.5 - Hyperlipidemia, unspecified (11) UTI (urinary tract infection) Qualifiers: Urinary tract infection type: site unspecified Hematuria presence: without hematuria Qualified Code(s): N39.0 - Urinary tract infection, site not specified <Amador Lugo - Last Filed: 03/13/18 15:34> (1) Sepsis Qualifiers: Sepsis type: sepsis due to unspecified organism Qualified Code(s): A41.9 - Sepsis, unspecified organism (2) HTN (hypertension) Qualifiers: Hypertension type: essential hypertension Qualified Code(s): I10 - Essential (primary) hypertension (3) HLD (hyperlipidemia) Qualifiers: Hyperlipidemia type: unspecified Qualified Code(s): E78.5 - Hyperlipidemia, unspecified (6) Constipation Qualifiers: Constipation type: unspecified constipation type Qualified Code(s): K59.00 - Constipation, unspecified (10) Community acquired pneumonia Qualifiers: Laterality: right Lung location: unspecified part of lung Qualified Code(s) : J18.9 - Pneumonia, unspecified organism (11) UTI (urinary tract infection) Qualifiers: Urinary tract infection type: site unspecified Hematuria presence: without hematuria Qualified Code(s): N39.0 - Urinary tract infection, site not specified
[2018-03-13] MEDS: Piperacillin/Tazobactam 3.375 GM in 0.9 % Sodium Chloride Mini Bag 100 ML IVP SCH (17:38)
[2018-03-13 19:56] LABS: Adenovirus Not Detected (Not Detect); Bordetella Pertussis Not Detected (Not Detect); Chlamydophila pneumoniae Not Detected (Not Detect); Coronavirus 229E Not Detected (Not Detect); Coronavirus HKU1 Not Detected (Not Detect); Coronavirus NL63 Not Detected (Not Detect); Coronavirus OC43 Not Detected (Not Detect); Human Metapneumovirus Not Detected (Not Detect); Human Rhinovirus/Enterovirus Not Detected (Not Detect); Influenza A Subtype 2009 H1 Not Detected (Not Detect); Influenza A Untypeable Not Detected (Not Detect); Influenza B Not Detected (Not Detect); Mycoplasma pneumoniae Not Detected (Not Detect); Parainfluenza Virus 1 Not Detected (Not Detect); Parainfluenza Virus 2 Not Detected (Not Detect); Parainfluenza Virus 3 DETECTED (Not Detect); Parainfluenza Virus 4 Not Detected (Not Detect); Respiratory Syncytial Virus Not Detected (Not Detect)
[2018-03-13] MEDS: Melatonin 3 MG TABLET PO SCH (23:05)
[2018-03-14] MEDS: Piperacillin/Tazobactam 3.375 GM in 0.9 % Sodium Chloride Mini Bag 100 ML IVP SCH ×3 (02:41→17:11)
[2018-03-14] MEDS: Levalbuterol Neb 1.25 MG/3 ML IH SCH ×6 (03:36→23:31)
[2018-03-14 05:55] LABS: Hematocrit 37.1 % (35.3-44.9); Hemoglobin 12.1 g/dL (11.5-15.4); Mean Corpuscular HGB Conc 32.6 g/dL (31.6-35.5); Mean Corpuscular Hemoglobin 28.9 pg (28.0-33.3); Mean Corpuscular Volume 88.8 fL (83.0-100.0); Mean Platelet Volume 11.5 fL (9.4-12.4); Platelet Count 309 K/mcL (140-400); Red Blood Count 4.18 M/mcL (3.82-4.97); Red Cell Distribution Width 13.1 % (11.5-14.5)
[2018-03-14] MEDS: MethylPREDNISolone 40 MG/ML VIAL IVP SCH (06:04)
[2018-03-14] MEDS: *HR* Heparin 5,000 UNIT/ML VIAL SQ SCH ×3 (06:04→21:00)
[2018-03-14 06:29] LABS: Alanine Aminotransferase 74 Units/L (7-52); Albumin 3.7 g/dL (3.5-5.7); Albumin/Globulin Ratio 1.3 (1.1-2.2); Alkaline Phosphatase 68 Units/L (34-104); Aspartate Amino Transferase 42 Units/L (13-39); Bilirubin,Total 0.3 mg/dL (0.3-1.0); Blood Urea Nitrogen 23 mg/dL (8-23); Calcium 9.5 mg/dL (8.6-10.3); Carbon Dioxide 31 mEq/L (23-29); Chloride 97 mEq/L (98-107); Globulin 2.8 g/dL (2.4-3.5); Glucose 153 mg/dL (70-105); Osmolality,Calculated 293 (280-300); Potassium 4.1 mEq/L (3.5-5.1); Sodium 138 mEq/L (136-145); Total Protein 6.5 g/dL (6.4-8.9)
[2018-03-14 07:12] LABS: Lymphocytes # 4.8 K/mcL (0.6-4.6); Monocytes # 1.5 K/mcL (0.0-1.3); Neutrophils # 17.4 K/mcL (1.6-8.9); Platelet Estimate Normal (Normal)
[2018-03-14 07:43] LABS: BUN/Creatinine Ratio 29 (6-26); eGFR For Non-African Americans > 60 (> 60)
[2018-03-14] MEDS: Budesonide/Formoterol 160/4.5 1 PUFF INH IH SCH ×2 (07:55→19:45)
[2018-03-14] MEDS: Tiotropium 18 MCG inhalation IH SCH (07:57)
[2018-03-14] MEDS: Lisinopril 20 MG TABLET PO SCH (08:51)
[2018-03-14] MEDS: Aspirin Enteric Coated 81 MG Tablet PO SCH (08:51)
[2018-03-14] MEDS ORDERED: predniSONE 20 MG TABLET PO SCH (09:00)
--- NOTE | 2018-03-14 09:29 | Internal Med Progress Note ---
Addendum entered and electronically signed by Bradly Scott 03/14/18 11:08: Addendum: pt is on Vanc/Zosyn day 2; rocephin d/c today Original Note: <Bradly Scott S - Last Filed: 03/14/18 09:24> Hospitalist Progress Note - Encounter Date of Encounter: 03/14/18 Time of Encounter: 09:24 - Subjective Interval History: Ms. Magaña is a 67yo female with a PMH of COPD requring 2L O2 throughout the day , CAD, HDL, HTN and obesity. She presented on 03/07 with increasing SOB from baseline, subjective fevers and increase in olive green sputum production for the last 48hrs. She states she has been increasingly having upper URI s/s over the last 3-4 weeks and then suddenly began to feel worse. She has been caring for her daughter who recently had a stroke. Of note, she told the night resident that she was staying at a group home but I clarfieid this with her and she states the daughter lives at home. The pt was found to be O2 sat in the 60's by EMS , which improved with oxygen and albuterol inhaler. -initial temprature was 101.2*F and heart rate was 170, which improved with BiPAP to the 120's Pt states that breathing is much better today. She is able to speak in full sentences without difficulty. -denies active chest pain -denies nausea, vomiting, diarrhea -has no acute complaints or concerns - Exam Vitals: Temp Pulse Resp BP Pulse Ox 98.0 F 72 18 164/77 97 03/14/18 08:00 03/14/18 08:00 03/14/18 08:00 03/14/18 08:00 03/14/18 08:00 Exam: Constitutional: Alert, in no acute distress , mild acute resp distress with minimal excertion, unable to speak in full sentences Head: Normocephalic, atraumatic Heart: Normal, regular rate and rhythm, no murmurs Lungs: decreased air movement heard with full inspiration, wheezing has improved since yesterday, SOB with talking has improved, supraclavicular retractions have improved; is able to speak in full sentences Abdomen: Soft, nondistended, nontender, obese Extremities: No edema, No clubbing, radial pulse +2/4, capillary refill <2sec. Skin: Skin warm and dry, no lesions, no rashes, no jaundice Neurologic: no FND Psych: Cooperative with exam - Assessment and Plan (1) Sepsis Current Visit: Yes Status: Acute Assessment and Plan: On admission pt met sepsis criteria with leukocytosis 16.6, HR 162, t max 101.2 -CXR with new sclerotic appearance of the posterior right 10th rib without pleural effusion or focal airspace opacity. -Lactic acid 1.9, repeat 1.7. -Procalcitonin 2.4, repeat pending Currently doesn't meet sepsis criteria HR 69, RR 16 WBC 24.1 (likely 2/2 steroids) Sputum cx showed no growth Legionella and S pneumo antigens negative Blood cx showed no growth CT chest showed a 7mm right lower lobe nodular opacity -pt is a high risk individual with a smoking hx -reccomend CT at 3-6mos and then 18-24mos Plan: -On Ceftriaxone(day 6) - discontinue Azithromycin today (day 5). - continue resp support, 2L NC - Levalbuterol Q2H prn , Q4H marc - mucinex BID -sepsis bolus given, no fluids currently running - restart solumedrol 40mg q12hr discontinued, start PO prednisone 40 mg - one time dose 40mg lasix ivp (03/13) - dispo: depends on clinical improvement. Breathing is closer to baseline, will see how pt tolerates PO steroids (2) HTN (hypertension) Current Visit: No Status: Chronic Assessment and Plan: BP this AM 164/77 -likely increased 2/2 anxiety from [facility] -Lopressor 25mg BID, lisinopril 20mg daily, ASA (3) Acute on chronic respiratory failure with hypoxia and hypercapnia Current Visit: Yes Status: Acute Assessment and Plan: Patient presents with acute respiratory failure -Patient usually wears 2 L of oxygen during the day, had to turn it up to 4L -ABG reviewed, reveals pH 7.33, pCO2 62, pO2 122, HCO3 32, and O2 sat 98% while on Bipap -ABG the morning of 03/08 is pH 7.38, pCO2 42, pO2 87, HCO3 33 2/2 to pneumonia causing acute COPD exacerbation. Improved oxygenation, less O2 support needed today 2L NC, home O2 is 2L. Tachypnea resolved while on BIPAP. This morning pt had SOB when she went to the bathroom, unable to catch breath or speak in full sentences. Nurse placed on BiPAP Plan: See sepsis. - continue Zopenex Q2H prn, Q4H marc - restarted methylprednisone 40mg IVQ12 03/12/18; will d/c today (03/14) - restart prednisone 60mg PO -one time dose of Lasix 40mg IVP given 03/12 - continue home meds for COPD: Spiriva, Symbicort (4) Constipation Current Visit: No Status: Resolved Assessment and Plan: Senna plus prn (5) Acute exacerbation of chronic obstructive pulmonary disease (COPD) Current Visit: Yes Status: Acute Assessment and Plan: See plan above for acute resp failure. Will need outpatient pulmonology appointment. (6) Elevated troponin Current Visit: Yes Status: Acute Assessment and Plan: Troponin= max 0.07, decreased to 0.03. Likely due to demand ischemia. EKG revealed sinus tachycardia with no signs of ischemia. [facility] 2000, no stent placed. Last echo 06/02/15 revealed LVEF 55-60%, mild LV diastolic dysfunction, and no pulmonary HTN. 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 Currently wnl with adequate PO intake. -d/c potassium supplement (8) Community acquired pneumonia Current Visit: Yes Status: Acute Assessment and Plan: See plan above for sepsis and acute resp failure. Will need outpatient pulmonology appointment. (9) HLD (hyperlipidemia) Current Visit: No Status: Chronic Assessment and Plan: Resume home statin (10) Obesity (BMI 30.0-34.9) Current Visit: No Status: Chronic Assessment and Plan: BMI 36.2, lifestyle modification (11) UTI (urinary tract infection) Current Visit: Yes Status: Acute Assessment and Plan: UA showed tntc rbc, 50-100 wbc, (+) leukocyte esterase, negative nitrates. no culture. Plan: -most likely contaminant, however, covered with rocephin day 6 DVT Prophylaxis: Heparin SQ - Time Spent with Patient Total time spent is greater than 50% in coordination of care (as documented) at patient's floor/unit and/or counseling patient: less than 15 minutes Plan of Care Discussed with: patient Internal Medicine: Result - Labs CBC & Chem 7: 03/14/18 03:51 03/14/18 03:51 Labs: Short CBC 03/14/18 Range/Units 03:51 WBC 24.1 H (4.3-11.1) K/mcL Hgb 12.1 (11.5-15.4) g/dL Hct 37.1 (35.3-44.9) % Plt Count 309 (140-400) K/mcL Neutrophils # 17.4 H (1.6-8.9) K/mcL BMP 03/14/18 03:51 Sodium 138 Potassium 4.1 Chloride 97 L Carbon Dioxide 31 H BUN 23 Creatinine 0.78 Glucose 153 H Calcium 9.5 Liver Function 03/14/18 Range/Units 03:51 Total Bilirubin 0.3 (0.3-1.0) mg/dL AST 42 H (13-39) Units/L ALT 74 H (7-52) Units/L Alkaline Phosphatase 68 (34-104) Units/L Albumin 3.7 (3.5-5.7) g/dL - ABG Interpretation ABG results: ABG ABG pH 7.38 pH Units (7.32-7.45) 03/08/18 04:40 ABG pCO2 42 mmHg (35-45) 03/08/18 04:40 ABG pO2 87 mmHg (85-104) 03/08/18 04:40 ABG O2 Saturation 96 % (95-98) 03/08/18 04:40 PT/INR, D-dimer PT 13.6 Seconds (9.4-12.1) H 03/08/18 04:04 - Impressions Impressions Chest CT 03/13/18 13:00 IMPRESSION: No focal consolidation. Small focus of nodular opacities within the left lower lobe is suspected to be infectious. Nonspecific 7 mm right lower lobe nodular opacity. RECOMMENDATIONS: Fleischner Society guidelines for follow-up and management of incidentally detected pulmonary nodules: Multiple Solid Nodules: Nodule size equals 6-8 mm In a low-risk patient, CT at 3-6 months, then consider CT at 18-24 months. In a high-risk patient, CT at 3-6 months, then CT at 18-24 months. Nodule size greater than 8 mm In a low-risk patient, CT at 3-6 months, then consider CT at 18-24 months. In a high-risk patient, CT at 3-6 months, then CT at 18-24 months. - Low risk patients include individuals with minimal or absent history of smoking and other known risk factors. - High risk patients include individuals with a history or smoking or known risk factors. Radiology 2017 http://pubs.rsna.org/doi/full/10.1148/radiol.0453759971 D/ / 03/13/2018 14:15:34 Alexander Ryan MD / rochelle Interpreting Provider: Alexander Ryan MD Consult Discharge Plan - Plan Referrals: Vladislav Marino MD [Primary Care Provider] - 03/16/18 2:00 pm <Amador Lugo - Last Filed: 03/14/18 17:52> Hospitalist Progress Note - Encounter Date of Encounter: 03/14/18 - Exam Vitals: Temp Pulse Resp BP Pulse Ox 98.1 F 91 18 148/79 93 03/14/18 16:14 03/14/18 16:14 03/14/18 16:20 03/14/18 16:14 03/14/18 16:20 - Assessment and Plan (1) Sepsis Current Visit: Yes Status: Acute (2) HTN (hypertension) Current Visit: No Status: Chronic (3) HLD (hyperlipidemia) Current Visit: No Status: Chronic (4) Obesity (BMI 30.0-34.9) Current Visit: No Status: Chronic (5) Acute on chronic respiratory failure with hypoxia and hypercapnia Current Visit: Yes Status: Acute (6) Constipation Current Visit: No Status: Resolved (7) Acute exacerbation of chronic obstructive pulmonary disease (COPD) Current Visit: Yes Status: Acute (8) Elevated troponin Current Visit: Yes Status: Acute (9) Hypokalemia Current Visit: Yes Status: Resolved (10) Community acquired pneumonia Current Visit: Yes Status: Acute (11) UTI (urinary tract infection) Current Visit: Yes Status: Acute - Time Spent with Patient Total time spent is greater than 50% in coordination of care (as documented) at patient's floor/unit and/or counseling patient: Internal Medicine: Result - Labs CBC & Chem 7: 03/14/18 03:51 03/14/18 03:51 Labs: Short CBC 03/14/18 Range/Units 03:51 WBC 24.1 H (4.3-11.1) K/mcL Hgb 12.1 (11.5-15.4) g/dL Hct 37.1 (35.3-44.9) % Plt Count 309 (140-400) K/mcL Neutrophils # 17.4 H (1.6-8.9) K/mcL BMP 03/14/18 03:51 Sodium 138 Potassium 4.1 Chloride 97 L Carbon Dioxide 31 H BUN 23 Creatinine 0.78 Glucose 153 H Calcium 9.5 Liver Function 03/14/18 Range/Units 03:51 Total Bilirubin 0.3 (0.3-1.0) mg/dL AST 42 H (13-39) Units/L ALT 74 H (7-52) Units/L Alkaline Phosphatase 68 (34-104) Units/L Albumin 3.7 (3.5-5.7) g/dL - ABG Interpretation ABG results: ABG ABG pH 7.38 pH Units (7.32-7.45) 03/08/18 04:40 ABG pCO2 42 mmHg (35-45) 03/08/18 04:40 ABG pO2 87 mmHg (85-104) 03/08/18 04:40 ABG O2 Saturation 96 % (95-98) 03/08/18 04:40 PT/INR, D-dimer PT 13.6 Seconds (9.4-12.1) H 03/08/18 04:04 - Impressions Impressions Chest CT 03/13/18 13:00 IMPRESSION: No focal consolidation. Small focus of nodular opacities within the left lower lobe is suspected to be infectious. Nonspecific 7 mm right lower lobe nodular opacity. RECOMMENDATIONS: Fleischner Society guidelines for follow-up and management of incidentally detected pulmonary nodules: Multiple Solid Nodules: Nodule size equals 6-8 mm In a low-risk patient, CT at 3-6 months, then consider CT at 18-24 months. In a high-risk patient, CT at 3-6 months, then CT at 18-24 months. Nodule size greater than 8 mm In a low-risk patient, CT at 3-6 months, then consider CT at 18-24 months. In a high-risk patient, CT at 3-6 months, then CT at 18-24 months. - Low risk patients include individuals with minimal or absent history of smoking and other known risk factors. - High risk patients include individuals with a history or smoking or known risk factors. Radiology 2017 http://pubs.rsna.org/doi/full/10.1148/radiol.3904314111 D/ / 03/13/2018 14:15:34 Alexander Ryan MD / rochelle Interpreting Provider: Alexander Ryan MD - Attending Attestation I examined this patient and my medical decision-making was reviewed with the Resident Physician Dr. Scott. I agree with the documented findings, disposition and treatment plan as described except to the extent set forth below. Ms. Magaña is a 67 year old female with a PMH of COPD with 2 L continuous supplemental home oxygen dependence throughout the day, CAD, hypertension, hyperlipidemia, and obesity who presented c/o SOB, fever, and green-yellow sputum production for the past 2 days. Patient was admitted in the hospital and started her on broad-spectrum antibiotic, as well as high-dose IV steroids. Patient stated that she is feeling little better today she still having moderate dyspnea on exertion. Also c/o oral thrush Gen: A, A, O x 3 Chest : Diminished BS b/l no crackles, mild to moderate wheezing Heart; S1S2+ sinus tachycardia a/p 1. Sepsis with Pneumonia 2. Acute on chronic hypoxic resp failure 3. Acute COPD exacerbation 4. Pneumonia - mostly bacterial her white count still trending up - mostly reactive due to steroids CT of the chest which showed few nodular opacities in the left lower lobe suspected infectious also showed 7 mm right lower lobe nodule Cont broad spec antibiotic Zosyn and Vanc already finished atypical coverage course Azithromycin for 5 days her respiratory infectious panel came back positive for parainfluenza continue close monitoring 5. Sclerotic lesion on CXR CT of Chest did not show any lesions however with her lung nodule and previous history of heavy smoking definitely need close monitoring of these nodule <Bradly Scott - Last Filed: 03/14/18 09:24> (1) Sepsis Qualifiers: Sepsis type: sepsis due to unspecified organism Qualified Code(s): A41.9 - Sepsis, unspecified organism (2) HTN (hypertension) Qualifiers: Hypertension type: essential hypertension Qualified Code(s): I10 - Essential (primary) hypertension (4) Constipation Qualifiers: Constipation type: unspecified constipation type Qualified Code(s): K59.00 - Constipation, unspecified (8) Community acquired pneumonia Qualifiers: Laterality: right Lung location: unspecified part of lung Qualified Code(s) : J18.9 - Pneumonia, unspecified organism (9) HLD (hyperlipidemia) Qualifiers: Hyperlipidemia type: unspecified Qualified Code(s): E78.5 - Hyperlipidemia, unspecified (11) UTI (urinary tract infection) Qualifiers: Urinary tract infection type: site unspecified Hematuria presence: without hematuria Qualified Code(s): N39.0 - Urinary tract infection, site not specified <SurajlalololiCarissa de andaky - Last Filed: 03/14/18 17:52> (1) Sepsis Qualifiers: Sepsis type: sepsis due to unspecified organism Qualified Code(s): A41.9 - Sepsis, unspecified organism (2) HTN (hypertension) Qualifiers: Hypertension type: essential hypertension Qualified Code(s): I10 - Essential (primary) hypertension (3) HLD (hyperlipidemia) Qualifiers: Hyperlipidemia type: unspecified Qualified Code(s): E78.5 - Hyperlipidemia, unspecified (6) Constipation Qualifiers: Constipation type: unspecified constipation type Qualified Code(s): K59.00 - Constipation, unspecified (10) Community acquired pneumonia Qualifiers: Laterality: right Lung location: unspecified part of lung Qualified Code(s) : J18.9 - Pneumonia, unspecified organism (11) UTI (urinary tract infection) Qualifiers: Urinary tract infection type: site unspecified Hematuria presence: without hematuria Qualified Code(s): N39.0 - Urinary tract infection, site not specified
[2018-03-14] MEDS: predniSONE 20 MG TABLET PO SCH (09:41)
[2018-03-14] MEDS: Nystatin SUSP 5 ML UD.LIQ PO SCH ×2 (17:11→21:00)
[2018-03-14] MEDS: Acetaminophen 325 MG TABLET PO PRN (21:00)
[2018-03-14] MEDS: Sennosides/Docusate Sodium TABLET PO PRN (21:03)
[2018-03-14] MEDS: Melatonin 3 MG TABLET PO SCH (21:51)
[2018-03-15] MEDS: Piperacillin/Tazobactam 3.375 GM in 0.9 % Sodium Chloride Mini Bag 100 ML IVP SCH ×3 (01:37→18:29)
[2018-03-15] MEDS: Levalbuterol Neb 1.25 MG/3 ML IH SCH ×6 (04:02→23:33)
[2018-03-15] MEDS: *HR* Heparin 5,000 UNIT/ML VIAL SQ SCH ×3 (05:49→20:59)
[2018-03-15 07:19] LABS: Alanine Aminotransferase 87 Units/L (7-52); Albumin 3.4 g/dL (3.5-5.7); Albumin/Globulin Ratio 1.5 (1.1-2.2); Alkaline Phosphatase 58 Units/L (34-104); Aspartate Amino Transferase 35 Units/L (13-39); BUN/Creatinine Ratio 27 (6-26); Bilirubin,Total 0.3 mg/dL (0.3-1.0); Blood Urea Nitrogen 24 mg/dL (8-23); Carbon Dioxide 34 mEq/L (23-29); Chloride 104 mEq/L (98-107); Globulin 2.2 g/dL (2.4-3.5); Glucose 89 mg/dL (70-105); Osmolality,Calculated 302 (280-300); Potassium 3.9 mEq/L (3.5-5.1); Sodium 144 mEq/L (136-145); Total Protein 5.6 g/dL (6.4-8.9); eGFR For Non-African Americans > 60 (> 60)
[2018-03-15] MEDS: Budesonide/Formoterol 160/4.5 1 PUFF INH IH SCH ×2 (07:42→20:17)
[2018-03-15] MEDS: Tiotropium 18 MCG inhalation IH SCH (07:42)
[2018-03-15 08:25] LABS: Hematocrit 34.2 % (35.3-44.9); Hemoglobin 11.2 g/dL (11.5-15.4); Lymphocytes # 3.8 K/mcL (0.6-4.6); Mean Corpuscular HGB Conc 32.7 g/dL (31.6-35.5); Mean Corpuscular Hemoglobin 29.5 pg (28.0-33.3); Mean Platelet Volume 11.2 fL (9.4-12.4); Platelet Count 310 K/mcL (140-400); Red Cell Distribution Width 13.4 % (11.5-14.5)
[2018-03-15 08:29] LABS: Calcium 9.3 mg/dL (8.6-10.3)
--- NOTE | 2018-03-15 09:31 | Internal Med Progress Note ---
<Bradly Scott S - Last Filed: 03/15/18 11:42> Hospitalist Progress Note - Encounter Date of Encounter: 03/15/18 Time of Encounter: 09:29 - Subjective Interval History: Ms. Magaña is a 67yo female with a PMH of COPD requring 2L O2 throughout the day , CAD, HDL, HTN and obesity. She presented on 03/07 with increasing SOB from baseline, subjective fevers and increase in olive green sputum production for the last 48hrs. She states she has been increasingly having upper URI s/s over the last 3-4 weeks and then suddenly began to feel worse. She has been caring for her daughter who recently had a stroke. Of note, she told the night resident that she was staying at a [facility] but I clarfieid this with her and she states the daughter lives at home. The pt was found to be O2 sat in the 60's by EMS , which improved with oxygen and albuterol inhaler. -initial temprature was 101.2*F and heart rate was 170, which improved with BiPAP to the 120's Pt states that breathing is much better today. She is able to speak in full sentences without difficulty. -denies active chest pain -denies nausea, vomiting, diarrhea -has no acute complaints or concerns -still has sputum production - Exam Vitals: Temp Pulse Resp BP Pulse Ox 97.6 F 78 16 126/80 98 03/15/18 08:02 03/15/18 08:02 03/15/18 08:02 03/15/18 08:02 03/15/18 08:02 Exam: Constitutional: Alert, in no acute distress , mild acute resp distress with minimal excertion, unable to speak in full sentences Head: Normocephalic, atraumatic Heart: Normal, regular rate and rhythm, no murmurs Lungs: decreased air movement heard with full inspiration, wheezing has improved , SOB with talking has improved, supraclavicular retractions have improved; is able to speak in full sentences Abdomen: Soft, nondistended, nontender, obese Extremities: No edema, No clubbing, radial pulse +2/4, capillary refill <2sec. Skin: Skin warm and dry, no lesions, no rashes, no jaundice Neurologic: no FND Psych: Cooperative with exam - Assessment and Plan (1) Sepsis Current Visit: Yes Status: Acute Assessment and Plan: On admission pt met sepsis criteria with leukocytosis 16.6, HR 162, t max 101.2 -CXR with new sclerotic appearance of the posterior right 10th rib without pleural effusion or focal airspace opacity. -Lactic acid 1.9, repeat 1.7. -Procalcitonin 2.4, repeat pending Currently doesn't meet sepsis criteria HR 78, RR 16 WBC 21.3 (likely 2/2 steroids) Sputum cx showed no growth Legionella and S pneumo antigens negative Blood cx showed no growth CT chest showed a 7mm right lower lobe nodular opacity -pt is a high risk individual with a smoking hx -reccomend CT at 3-6mos and then 18-24mos Plan: - d/c Vanc after three days of tx (03/15) - Zosyn day 3 - will start Augmentin tomorrow - d/c Ceftriaxone(day 6 of tx received) - discontinue Azithromycin today (day 5). - continue resp support, 2L NC - Levalbuterol Q2H prn , Q4H marc - mucinex BID -sepsis bolus given, no fluids currently running - solumedrol 40mg q12hr discontinued - continue PO prednisone 40mg ---> 30mg starting tomorrow - one time dose 40mg lasix ivp (03/13) - dispo: depends on clinical improvement. Breathing is closer to baseline, will see how pt tolerates PO steroids (2) HTN (hypertension) Current Visit: No Status: Chronic Assessment and Plan: BP this AM 128/80 -adequate control -Lopressor 25mg BID, lisinopril 20mg daily, ASA (3) Acute on chronic respiratory failure with hypoxia and hypercapnia Current Visit: Yes Status: Acute Assessment and Plan: Patient presents with acute respiratory failure -Patient usually wears 2 L of oxygen during the day, had to turn it up to 4L -ABG reviewed, reveals pH 7.33, pCO2 62, pO2 122, HCO3 32, and O2 sat 98% while on Bipap -ABG the morning of 03/08 is pH 7.38, pCO2 42, pO2 87, HCO3 33 2/2 to pneumonia causing acute COPD exacerbation. Improved oxygenation, less O2 support needed today 2L NC, home O2 is 2L. Tachypnea resolved while on BIPAP. Breathing has improved today. Plan: See sepsis. - continue Zopenex Q2H prn, Q4H marc - restarted methylprednisone 40mg IVQ12 03/12/18; will d/c today (03/14) - continue prednisone 40mg PO ---> 30mg PO starting tomorrow -one time dose of Lasix 40mg IVP given 03/12 - continue home meds for COPD: Spiriva, Symbicort (4) Constipation Current Visit: No Status: Resolved Assessment and Plan: Senna plus prn (5) Acute exacerbation of chronic obstructive pulmonary disease (COPD) Current Visit: Yes Status: Acute Assessment and Plan: See plan above for acute resp failure. Will need outpatient pulmonology appointment. (6) Elevated troponin Current Visit: Yes Status: Acute Assessment and Plan: Troponin= max 0.07, decreased to 0.03. Likely due to demand ischemia. EKG revealed sinus tachycardia with no signs of ischemia. [facility] 2000, no stent placed. Last echo 06/02/15 revealed LVEF 55-60%, mild LV diastolic dysfunction, and no pulmonary HTN. Likely due to type II OK - demands ischemia Plan: -Continue home Aspirin, beta tai and statin (7) Hypokalemia Current Visit: Yes Status: Resolved Assessment and Plan: Resolved. Currently wnl with adequate PO intake. -d/c potassium supplement (8) Community acquired pneumonia Current Visit: Yes Status: Acute Assessment and Plan: See plan above for sepsis and acute resp failure. Will need outpatient pulmonology appointment. (9) UTI (urinary tract infection) Current Visit: Yes Status: Resolved Assessment and Plan: UA showed tntc rbc, 50-100 wbc, (+) leukocyte esterase, negative nitrates. no culture. Plan: -most likely contaminant, however, covered with rocephin day 6, d/c rocephin (10) HLD (hyperlipidemia) Current Visit: No Status: Chronic Assessment and Plan: Resume home statin (11) Obesity (BMI 30.0-34.9) Current Visit: No Status: Chronic Assessment and Plan: BMI 36.4, lifestyle modification (12) Oral arnold Current Visit: Yes Status: Acute Assessment and Plan: Start Nystatin swish and swallow -improving DVT Prophylaxis: Heparin SQ - Time Spent with Patient Total time spent is greater than 50% in coordination of care (as documented) at patient's floor/unit and/or counseling patient: less than 15 minutes Plan of Care Discussed with: patient Internal Medicine: Result - Labs CBC & Chem 7: 03/15/18 05:42 03/15/18 05:42 Labs: Short CBC 03/15/18 Range/Units 05:42 WBC 21.3 H (4.3-11.1) K/mcL Hgb 11.2 L (11.5-15.4) g/dL Hct 34.2 L (35.3-44.9) % Plt Count 310 (140-400) K/mcL BMP 03/15/18 05:42 Sodium 144 Potassium 3.9 Chloride 104 Carbon Dioxide 34 H BUN 24 H Creatinine 0.90 Glucose 89 Calcium 9.3 Liver Function 03/15/18 Range/Units 05:42 Total Bilirubin 0.3 (0.3-1.0) mg/dL AST 35 (13-39) Units/L ALT 87 H (7-52) Units/L Alkaline Phosphatase 58 (34-104) Units/L Albumin 3.4 L (3.5-5.7) g/dL - ABG Interpretation ABG results: ABG ABG pH 7.38 pH Units (7.32-7.45) 03/08/18 04:40 ABG pCO2 42 mmHg (35-45) 03/08/18 04:40 ABG pO2 87 mmHg (85-104) 03/08/18 04:40 ABG O2 Saturation 96 % (95-98) 03/08/18 04:40 PT/INR, D-dimer PT 13.6 Seconds (9.4-12.1) H 03/08/18 04:04 Consult Discharge Plan - Plan Referrals: Vladislav Marino MD [Primary Care Provider] - 03/16/18 2:00 pm Bradly Scott [Resident] - <Amador Lugo - Last Filed: 03/15/18 16:01> Hospitalist Progress Note - Encounter Date of Encounter: 03/15/18 - Exam Vitals: Temp Pulse Resp BP Pulse Ox 97.8 F 63 16 150/84 94 03/15/18 12:42 03/15/18 12:42 03/15/18 12:42 03/15/18 12:42 03/15/18 12:42 - Assessment and Plan (1) Sepsis Current Visit: Yes Status: Acute (2) HTN (hypertension) Current Visit: No Status: Chronic (3) HLD (hyperlipidemia) Current Visit: No Status: Chronic (4) Obesity (BMI 30.0-34.9) Current Visit: No Status: Chronic (5) Acute on chronic respiratory failure with hypoxia and hypercapnia Current Visit: Yes Status: Acute (6) Constipation Current Visit: No Status: Resolved (7) Acute exacerbation of chronic obstructive pulmonary disease (COPD) Current Visit: Yes Status: Acute (8) Elevated troponin Current Visit: Yes Status: Acute (9) Hypokalemia Current Visit: Yes Status: Resolved (10) Community acquired pneumonia Current Visit: Yes Status: Acute (11) UTI (urinary tract infection) Current Visit: Yes Status: Resolved (12) Oral arnold Current Visit: Yes Status: Acute - Time Spent with Patient Total time spent is greater than 50% in coordination of care (as documented) at patient's floor/unit and/or counseling patient: Internal Medicine: Result - Labs CBC & Chem 7: 03/15/18 05:42 03/15/18 05:42 Labs: Short CBC 03/15/18 Range/Units 05:42 WBC 21.3 H (4.3-11.1) K/mcL Hgb 11.2 L (11.5-15.4) g/dL Hct 34.2 L (35.3-44.9) % Plt Count 310 (140-400) K/mcL Neutrophils # 14.1 H (1.6-8.9) K/mcL BMP 03/15/18 05:42 Sodium 144 Potassium 3.9 Chloride 104 Carbon Dioxide 34 H BUN 24 H Creatinine 0.90 Glucose 89 Calcium 9.3 Liver Function 03/15/18 Range/Units 05:42 Total Bilirubin 0.3 (0.3-1.0) mg/dL AST 35 (13-39) Units/L ALT 87 H (7-52) Units/L Alkaline Phosphatase 58 (34-104) Units/L Albumin 3.4 L (3.5-5.7) g/dL - ABG Interpretation ABG results: ABG ABG pH 7.38 pH Units (7.32-7.45) 03/08/18 04:40 ABG pCO2 42 mmHg (35-45) 03/08/18 04:40 ABG pO2 87 mmHg (85-104) 03/08/18 04:40 ABG O2 Saturation 96 % (95-98) 03/08/18 04:40 PT/INR, D-dimer PT 13.6 Seconds (9.4-12.1) H 03/08/18 04:04 - Attending Attestation I examined this patient and my medical decision-making was reviewed with the Resident Physician Dr. Scott. I agree with the documented findings, disposition and treatment plan as described except to the extent set forth below. Ms. Magaña is a 67 year old female with a PMH of COPD with 2 L continuous supplemental home oxygen dependence throughout the day, CAD, hypertension, hyperlipidemia, and obesity who presented c/o SOB, fever, and green-yellow sputum production for the past 2 days. Patient was admitted in the hospital and started her on broad-spectrum antibiotic, as well as high-dose IV steroids. Patient stated that she is feeling much better today. Pt states her oral thrush better too. Gen: A, A, O x 3 Chest : Diminished BS b/l no crackles, mild to moderate wheezing Heart; S1S2+ sinus tachycardia a/p 1. Sepsis with Pneumonia 2. Acute on chronic hypoxic resp failure 3. Acute COPD exacerbation 4. Pneumonia - mostly bacterial her white count started trending down CT of the chest which showed few nodular opacities in the left lower lobe suspected infectious also showed 7 mm right lower lobe nodule Cont broad spec antibiotic Zosyn already finished atypical coverage course Azithromycin for 5 days her respiratory infectious panel came back positive for parainfluenza continue close monitoring 5. Sclerotic lesion on CXR CT of Chest did not show any lesions however with her lung nodule and previous history of heavy smoking definitely need close monitoring of these nodule <Bradly Scott S - Last Filed: 03/15/18 11:42> (1) Sepsis Qualifiers: Sepsis type: sepsis due to unspecified organism Qualified Code(s): A41.9 - Sepsis, unspecified organism (2) HTN (hypertension) Qualifiers: Hypertension type: essential hypertension Qualified Code(s): I10 - Essential (primary) hypertension (4) Constipation Qualifiers: Constipation type: unspecified constipation type Qualified Code(s): K59.00 - Constipation, unspecified (8) Community acquired pneumonia Qualifiers: Laterality: right Lung location: unspecified part of lung Qualified Code(s) : J18.9 - Pneumonia, unspecified organism (9) UTI (urinary tract infection) Qualifiers: Urinary tract infection type: site unspecified Hematuria presence: without hematuria Qualified Code(s): N39.0 - Urinary tract infection, site not specified (10) HLD (hyperlipidemia) Qualifiers: Hyperlipidemia type: unspecified Qualified Code(s): E78.5 - Hyperlipidemia, unspecified <Thallapaneni,Rambabu - Last Filed: 03/15/18 16:01> (1) Sepsis Qualifiers: Sepsis type: sepsis due to unspecified organism Qualified Code(s): A41.9 - Sepsis, unspecified organism (2) HTN (hypertension) Qualifiers: Hypertension type: essential hypertension Qualified Code(s): I10 - Essential (primary) hypertension (3) HLD (hyperlipidemia) Qualifiers: Hyperlipidemia type: unspecified Qualified Code(s): E78.5 - Hyperlipidemia, unspecified (6) Constipation Qualifiers: Constipation type: unspecified constipation type Qualified Code(s): K59.00 - Constipation, unspecified (10) Community acquired pneumonia Qualifiers: Laterality: right Lung location: unspecified part of lung Qualified Code(s) : J18.9 - Pneumonia, unspecified organism (11) UTI (urinary tract infection) Qualifiers: Urinary tract infection type: site unspecified Hematuria presence: without hematuria Qualified Code(s): N39.0 - Urinary tract infection, site not specified
[2018-03-15 09:45] LABS: Monocytes # 1.3 K/mcL (0.0-1.3); Neutrophils # 14.1 K/mcL (1.6-8.9); Reactive Lymphocytes Present (Not Present); Toxic Granulation Present (Not Present)
[2018-03-15 09:46] LABS: Platelet Estimate Normal (Normal)
[2018-03-15] MEDS: predniSONE 20 MG TABLET PO SCH (10:05)
[2018-03-15] MEDS: Lisinopril 20 MG TABLET PO SCH (10:05)
[2018-03-15] MEDS: Aspirin Enteric Coated 81 MG Tablet PO SCH (10:06)
[2018-03-15] MEDS: Nystatin SUSP 5 ML UD.LIQ PO SCH ×4 (10:06→20:59)
[2018-03-15] MEDS: Sennosides/Docusate Sodium TABLET PO PRN (15:56)
[2018-03-15] MEDS: Acetaminophen 325 MG TABLET PO PRN ×2 (15:56→20:59)
[2018-03-15] MEDS: Melatonin 3 MG TABLET PO SCH (22:13)
[2018-03-15] MEDS: hydrOXYzine pamoate 25 MG CAPSULE PO PRN (22:13)
[2018-03-16] MEDS: Piperacillin/Tazobactam 3.375 GM in 0.9 % Sodium Chloride Mini Bag 100 ML IVP SCH ×2 (02:04→09:46)
[2018-03-16] MEDS: Levalbuterol Neb 1.25 MG/3 ML IH SCH ×6 (03:38→23:31)
[2018-03-16 04:40] LABS: Hemoglobin 11.4 g/dL (11.5-15.4); Mean Corpuscular HGB Conc 31.7 g/dL (31.6-35.5); Mean Corpuscular Hemoglobin 28.7 pg (28.0-33.3); Mean Corpuscular Volume 90.7 fL (83.0-100.0); Mean Platelet Volume 10.7 fL (9.4-12.4); Nucleated Red Blood Cells 0.1 /100 WBC (0); Platelet Count 301 K/mcL (140-400); Red Blood Count 3.97 M/mcL (3.82-4.97); Red Cell Distribution Width 13.4 % (11.5-14.5)
[2018-03-16 05:00] LABS: Alanine Aminotransferase 152 Units/L (7-52); Albumin 3.5 g/dL (3.5-5.7); Albumin/Globulin Ratio 1.5 (1.1-2.2); Alkaline Phosphatase 57 Units/L (34-104); Aspartate Amino Transferase 66 Units/L (13-39); BUN/Creatinine Ratio 25 (6-26); Bilirubin,Total 0.3 mg/dL (0.3-1.0); Blood Urea Nitrogen 19 mg/dL (8-23); Calcium 9.2 mg/dL (8.6-10.3); Carbon Dioxide 33 mEq/L (23-29); Chloride 102 mEq/L (98-107); Globulin 2.3 g/dL (2.4-3.5); Glucose 91 mg/dL (70-105); Osmolality,Calculated 296 (280-300); Potassium 3.8 mEq/L (3.5-5.1); Sodium 142 mEq/L (136-145); Total Protein 5.8 g/dL (6.4-8.9); eGFR For Non-African Americans > 60 (> 60)
[2018-03-16 05:09] LABS: Eosinophils # 0.4 K/mcL (0.0-0.6); Lymphocytes # 5.1 K/mcL (0.6-4.6); Monocytes # 1.7 K/mcL (0.0-1.3); Neutrophils # 13.7 K/mcL (1.6-8.9); Platelet Estimate Normal (Normal); Toxic Granulation Present (Not Present)
[2018-03-16] MEDS: *HR* Heparin 5,000 UNIT/ML VIAL SQ SCH ×3 (06:08→20:31)
[2018-03-16] MEDS: Tiotropium 18 MCG inhalation IH SCH (07:38)
[2018-03-16] MEDS: Budesonide/Formoterol 160/4.5 1 PUFF INH IH SCH ×2 (07:38→20:04)
--- NOTE | 2018-03-16 09:16 | Internal Med Progress Note ---
<Bradly Scott S - Last Filed: 03/16/18 13:29> Hospitalist Progress Note - Encounter Date of Encounter: 03/16/18 Time of Encounter: 09:14 - Subjective Interval History: Ms. Magaña is a 67yo female with a PMH of COPD requring 2L O2 throughout the day , CAD, HDL, HTN and obesity. She presented on 03/07 with increasing SOB from baseline, subjective fevers and increase in olive green sputum production for the last 48hrs. She states she has been increasingly having upper URI s/s over the last 3-4 weeks and then suddenly began to feel worse. She has been caring for her daughter who recently had a stroke. Of note, she told the night resident that she was staying at a [facility] but I clarfieid this with her and she states the daughter lives at home. The pt was found to be O2 sat in the 60's by EMS , which improved with oxygen and albuterol inhaler. -initial temprature was 101.2*F and heart rate was 170, which improved with BiPAP to the 120's Pt states that breathing is much better today. She is able to speak in full sentences without difficulty. - denies active chest pain - denies nausea, vomiting, diarrhea - has no acute complaints or concerns - still has sputum production - asks to stay until tomorrow bc grandchildren are out of town - Exam Vitals: Temp Pulse Resp BP Pulse Ox 97.7 F 69 16 146/79 99 03/16/18 07:04 03/16/18 07:04 03/16/18 07:38 03/16/18 07:04 03/16/18 07:38 Exam: Constitutional: Alert, in no acute distress , mild acute resp distress with minimal excertion, unable to speak in full sentences Head: Normocephalic, atraumatic Heart: Normal, regular rate and rhythm, no murmurs Lungs: decreased air movement heard with full inspiration, wheezing has improved , SOB with talking has improved, supraclavicular retractions have improved; is able to speak in full sentences Abdomen: Soft, nondistended, nontender, obese Extremities: No edema, No clubbing, radial pulse +2/4, capillary refill <2sec. Skin: Skin warm and dry, no lesions, no rashes, no jaundice Neurologic: no FND Psych: Cooperative with exam - Assessment and Plan (1) Sepsis Current Visit: Yes Status: Acute Assessment and Plan: On admission pt met sepsis criteria with leukocytosis 16.6, HR 162, t max 101.2 -CXR with new sclerotic appearance of the posterior right 10th rib without pleural effusion or focal airspace opacity. -Lactic acid 1.9, repeat 1.7. -Procalcitonin 2.4, repeat pending Currently doesn't meet sepsis criteria HR 69, RR 16 WBC 21.4 (likely 2/2 steroids) Sputum cx showed no growth Legionella and S pneumo antigens negative Blood cx showed no growth CT chest showed a 7mm right lower lobe nodular opacity -pt is a high risk individual with a smoking hx -reccomend CT at 3-6mos and then 18-24mos Plan: - d/c Vanc after three days of tx (03/15) - Zosyn day 3 (d/c today); start Augmentin PO - d/c Ceftriaxone(day 6 of tx received) - discontinue Azithromycin (5 days tx given). - continue resp support, 2L NC - Levalbuterol Q2H prn , Q4H marc - mucinex BID - sepsis bolus given, no fluids currently running - solumedrol 40mg q12hr discontinued - continue PO prednisone 40mg ---> 30mg starting today (03/16) - one time dose 40mg lasix ivp (03/13) - dispo: depends on clinical improvement. Breathing is at baseline. Pt can be discharged tomorrow. (2) HTN (hypertension) Current Visit: No Status: Chronic Assessment and Plan: BP this AM 146/79 -continue home meds -Lopressor 25mg BID, lisinopril 20mg daily, ASA (3) Acute on chronic respiratory failure with hypoxia and hypercapnia Current Visit: Yes Status: Resolved Assessment and Plan: Patient presents with acute respiratory failure -Patient usually wears 2 L of oxygen during the day, had to turn it up to 4L -ABG reviewed, reveals pH 7.33, pCO2 62, pO2 122, HCO3 32, and O2 sat 98% while on Bipap -ABG the morning of 03/08 is pH 7.38, pCO2 42, pO2 87, HCO3 33 2/2 to pneumonia causing acute COPD exacerbation. Improved oxygenation, less O2 support needed today 2L NC, home O2 is 2L. Tachypnea resolved while on BIPAP. Breathing has improved today. Plan: See sepsis. - continue Zopenex Q2H prn, Q4H marc - restarted methylprednisone 40mg IVQ12 03/12/18; will d/c today (03/14) - continue prednisone 40mg PO ---> 30mg PO starting today (03/16) -one time dose of Lasix 40mg IVP given 03/12 - continue home meds for COPD: Spiriva, Symbicort (4) Constipation Current Visit: No Status: Resolved Assessment and Plan: Senna plus prn (5) Acute exacerbation of chronic obstructive pulmonary disease (COPD) Current Visit: Yes Status: Resolved Assessment and Plan: See plan above for acute resp failure. Will need outpatient pulmonology appointment. (6) Elevated troponin Current Visit: Yes Status: Acute Assessment and Plan: Troponin= max 0.07, decreased to 0.03. Likely due to demand ischemia. EKG revealed sinus tachycardia with no signs of ischemia. [facility] 2000, no stent placed. Last echo 06/02/15 revealed LVEF 55-60%, mild LV diastolic dysfunction, and no pulmonary HTN. Likely due to type II CA - demands ischemia Plan: -Continue home Aspirin, beta tai and statin (7) Hypokalemia Current Visit: No Status: Resolved Assessment and Plan: Resolved. Currently wnl with adequate PO intake. -d/c potassium supplement (8) Community acquired pneumonia Current Visit: Yes Status: Acute Assessment and Plan: See plan above for sepsis and acute resp failure. Will need outpatient pulmonology appointment. (9) UTI (urinary tract infection) Current Visit: Yes Status: Resolved Assessment and Plan: UA showed tntc rbc, 50-100 wbc, (+) leukocyte esterase, negative nitrates. no culture. Plan: -most likely contaminant, however, covered with rocephin day 6, d/c rocephin (10) HLD (hyperlipidemia) Current Visit: No Status: Chronic Assessment and Plan: Resume home statin (11) Obesity (BMI 30.0-34.9) Current Visit: No Status: Chronic Assessment and Plan: BMI 36.3, lifestyle modification (12) Oral arnold Current Visit: Yes Status: Acute Assessment and Plan: Start Nystatin swish and swallow -improving DVT Prophylaxis: Heparin SQ - Time Spent with Patient Total time spent is greater than 50% in coordination of care (as documented) at patient's floor/unit and/or counseling patient: less than 15 minutes Plan of Care Discussed with: patient Internal Medicine: Result - Labs CBC & Chem 7: 03/16/18 04:06 03/16/18 04:06 Labs: Short CBC 03/15/18 03/16/18 Range/Units 05:42 04:06 WBC 21.3 H 21.4 H (4.3-11.1) K/mcL Hgb 11.2 L 11.4 L (11.5-15.4) g/dL Hct 34.2 L 36.0 (35.3-44.9) % Plt Count 310 301 (140-400) K/mcL Neutrophils # 14.1 H 13.7 H (1.6-8.9) K/mcL BMP 03/15/18 03/16/18 05:42 04:06 Sodium 144 142 Potassium 3.9 3.8 Chloride 104 102 Carbon Dioxide 34 H 33 H BUN 24 H 19 Creatinine 0.90 0.77 Glucose 89 91 Calcium 9.3 9.2 Liver Function 03/15/18 03/16/18 Range/Units 05:42 04:06 Total Bilirubin 0.3 0.3 (0.3-1.0) mg/dL AST 35 66 H (13-39) Units/L ALT 87 H 152 H (7-52) Units/L Alkaline Phosphatase 58 57 (34-104) Units/L Albumin 3.4 L 3.5 (3.5-5.7) g/dL - ABG Interpretation ABG results: ABG ABG pH 7.38 pH Units (7.32-7.45) 03/08/18 04:40 ABG pCO2 42 mmHg (35-45) 03/08/18 04:40 ABG pO2 87 mmHg (85-104) 03/08/18 04:40 ABG O2 Saturation 96 % (95-98) 03/08/18 04:40 PT/INR, D-dimer PT 13.6 Seconds (9.4-12.1) H 03/08/18 04:04 Consult Discharge Plan - Plan Referrals: Vladislav glez MD [Primary Care Provider] - 03/16/18 2:00 pm Bradly Scott [Resident] - <Amador Lugo - Last Filed: 03/16/18 17:13> Hospitalist Progress Note - Encounter Date of Encounter: 03/16/18 - Exam Vitals: Temp Pulse Resp BP Pulse Ox 98.5 F 81 16 150/78 96 03/16/18 15:35 03/16/18 15:35 03/16/18 15:50 03/16/18 15:35 03/16/18 15:50 - Assessment and Plan (1) Sepsis Current Visit: Yes Status: Acute (2) HTN (hypertension) Current Visit: No Status: Chronic (3) HLD (hyperlipidemia) Current Visit: No Status: Chronic (4) Obesity (BMI 30.0-34.9) Current Visit: No Status: Chronic (5) Acute on chronic respiratory failure with hypoxia and hypercapnia Current Visit: Yes Status: Resolved (6) Constipation Current Visit: No Status: Resolved (7) Acute exacerbation of chronic obstructive pulmonary disease (COPD) Current Visit: Yes Status: Resolved (8) Elevated troponin Current Visit: Yes Status: Acute (9) Hypokalemia Current Visit: No Status: Resolved (10) Community acquired pneumonia Current Visit: Yes Status: Acute (11) UTI (urinary tract infection) Current Visit: Yes Status: Resolved (12) Oral arnold Current Visit: Yes Status: Acute - Time Spent with Patient Total time spent is greater than 50% in coordination of care (as documented) at patient's floor/unit and/or counseling patient: Internal Medicine: Result - Labs CBC & Chem 7: 03/16/18 04:06 03/16/18 04:06 Labs: Short CBC 03/16/18 Range/Units 04:06 WBC 21.4 H (4.3-11.1) K/mcL Hgb 11.4 L (11.5-15.4) g/dL Hct 36.0 (35.3-44.9) % Plt Count 301 (140-400) K/mcL Neutrophils # 13.7 H (1.6-8.9) K/mcL BMP 03/16/18 04:06 Sodium 142 Potassium 3.8 Chloride 102 Carbon Dioxide 33 H BUN 19 Creatinine 0.77 Glucose 91 Calcium 9.2 Liver Function 03/16/18 Range/Units 04:06 Total Bilirubin 0.3 (0.3-1.0) mg/dL AST 66 H (13-39) Units/L ALT 152 H (7-52) Units/L Alkaline Phosphatase 57 (34-104) Units/L Albumin 3.5 (3.5-5.7) g/dL - ABG Interpretation ABG results: ABG ABG pH 7.38 pH Units (7.32-7.45) 03/08/18 04:40 ABG pCO2 42 mmHg (35-45) 03/08/18 04:40 ABG pO2 87 mmHg (85-104) 03/08/18 04:40 ABG O2 Saturation 96 % (95-98) 03/08/18 04:40 PT/INR, D-dimer PT 13.6 Seconds (9.4-12.1) H 03/08/18 04:04 - Attending Attestation I examined this patient and my medical decision-making was reviewed with the Resident Physician Dr. Scott. I agree with the documented findings, disposition and treatment plan as described except to the extent set forth below. Ms. Magaña is a 67 year old female with a PMH of COPD with 2 L continuous supplemental home oxygen dependence throughout the day, CAD, hypertension, hyperlipidemia, and obesity who presented c/o SOB, fever, and green-yellow sputum production for the past 2 days. Patient was admitted in the hospital and started her on broad-spectrum antibiotic, as well as high-dose IV steroids. Patient stated that she is feeling much better today. Pt states her oral thrush better too. Gen: A, A, O x 3 Chest : Diminished BS b/l no crackles, mild to moderate wheezing Heart; S1S2+ RRR a/p 1. Sepsis with Pneumonia 2. Acute on chronic hypoxic resp failure 3. Acute COPD exacerbation 4. Pneumonia - mostly bacterial her white count started trending down CT of the chest which showed few nodular opacities in the left lower lobe suspected infectious also showed 7 mm right lower lobe nodule Switched to PO Abx Augmentin already finished atypical coverage course Azithromycin for 5 days her respiratory infectious panel came back positive for parainfluenza continue close monitoring 5. Sclerotic lesion on CXR CT of Chest did not show any lesions however with her lung nodule and previous history of heavy smoking definitely need close monitoring of these nodule <Bradly Scott - Last Filed: 03/16/18 13:29> (1) Sepsis Qualifiers: Sepsis type: sepsis due to unspecified organism Qualified Code(s): A41.9 - Sepsis, unspecified organism (2) HTN (hypertension) Qualifiers: Hypertension type: essential hypertension Qualified Code(s): I10 - Essential (primary) hypertension (4) Constipation Qualifiers: Constipation type: unspecified constipation type Qualified Code(s): K59.00 - Constipation, unspecified (8) Community acquired pneumonia Qualifiers: Laterality: right Lung location: unspecified part of lung Qualified Code(s) : J18.9 - Pneumonia, unspecified organism (9) UTI (urinary tract infection) Qualifiers: Urinary tract infection type: site unspecified Hematuria presence: without hematuria Qualified Code(s): N39.0 - Urinary tract infection, site not specified (10) HLD (hyperlipidemia) Qualifiers: Hyperlipidemia type: unspecified Qualified Code(s): E78.5 - Hyperlipidemia, unspecified <Thallapaneni,Rambabu - Last Filed: 03/16/18 17:13> (1) Sepsis Qualifiers: Sepsis type: sepsis due to unspecified organism Qualified Code(s): A41.9 - Sepsis, unspecified organism (2) HTN (hypertension) Qualifiers: Hypertension type: essential hypertension Qualified Code(s): I10 - Essential (primary) hypertension (3) HLD (hyperlipidemia) Qualifiers: Hyperlipidemia type: unspecified Qualified Code(s): E78.5 - Hyperlipidemia, unspecified (6) Constipation Qualifiers: Constipation type: unspecified constipation type Qualified Code(s): K59.00 - Constipation, unspecified (10) Community acquired pneumonia Qualifiers: Laterality: right Lung location: unspecified part of lung Qualified Code(s) : J18.9 - Pneumonia, unspecified organism (11) UTI (urinary tract infection) Qualifiers: Urinary tract infection type: site unspecified Hematuria presence: without hematuria Qualified Code(s): N39.0 - Urinary tract infection, site not specified
[2018-03-16] MEDS: Nystatin SUSP 5 ML UD.LIQ PO SCH ×4 (09:46→20:32)
[2018-03-16] MEDS: Aspirin Enteric Coated 81 MG Tablet PO SCH (09:46)
[2018-03-16] MEDS: predniSONE 20 MG TABLET PO SCH (09:46)
[2018-03-16] MEDS: Lisinopril 20 MG TABLET PO SCH (09:46)
[2018-03-16] MEDS: Acetaminophen 325 MG TABLET PO PRN (09:46)
[2018-03-16] MEDS ORDERED: Aminoglycoside Consult 1 EACH MC ONE (14:28)
[2018-03-16] MEDS: Amoxicillin/Clavulanate 500 MG TABLET PO SCH (17:11)
[2018-03-16] MEDS: hydrOXYzine pamoate 25 MG CAPSULE PO PRN (22:19)
[2018-03-16] MEDS: Melatonin 3 MG TABLET PO SCH (22:20)
[2018-03-17] MEDS: Levalbuterol Neb 1.25 MG/3 ML IH SCH ×3 (04:29→11:28)
[2018-03-17] MEDS: *HR* Heparin 5,000 UNIT/ML VIAL SQ SCH (05:23)
[2018-03-17 06:39] LABS: Basophils # 0.2 K/mcL (0.0-0.2); Basophils % 0.8 %; Eosinophils # 0.3 K/mcL (0.0-0.6); Eosinophils % 1.4 %; Hemoglobin 11.4 g/dL (11.5-15.4); Immature Granulocytes % 5.8 % (0-4); Mean Corpuscular HGB Conc 32.6 g/dL (31.6-35.5); Mean Corpuscular Hemoglobin 29.6 pg (28.0-33.3); Mean Corpuscular Volume 90.9 fL (83.0-100.0); Mean Platelet Volume 10.7 fL (9.4-12.4); Monocytes # 1.2 K/mcL (0.0-1.3); Monocytes % 5.2 %; Neutrophils # 15.5 K/mcL (1.6-8.9); Platelet Count 267 K/mcL (140-400); Red Blood Count 3.85 M/mcL (3.82-4.97); Red Cell Distribution Width 13.5 % (11.5-14.5); Segmented Neutrophils % 67.8 %
[2018-03-17 06:41] LABS: Lymphocytes # 4.4 K/mcL (0.6-4.6)
[2018-03-17 07:12] LABS: Platelet Estimate Normal (Normal)
[2018-03-17 07:13] LABS: Toxic Granulation Present (Not Present)
[2018-03-17] MEDS: Amoxicillin/Clavulanate 500 MG TABLET PO SCH (08:30)
[2018-03-17] MEDS: Nystatin SUSP 5 ML UD.LIQ PO SCH (08:30)
[2018-03-17] MEDS: Lisinopril 20 MG TABLET PO SCH (08:31)
[2018-03-17] MEDS: Aspirin Enteric Coated 81 MG Tablet PO SCH (08:31)
[2018-03-17] MEDS: predniSONE 20 MG TABLET PO SCH (08:31)
[2018-03-17] MEDS: Tiotropium 18 MCG inhalation IH SCH (11:27)
[2018-03-17] MEDS: Budesonide/Formoterol 160/4.5 1 PUFF INH IH SCH (11:28)
[2018-03-17 11:36] VITALS: BP 167/86
--- NOTE | 2018-03-17 11:59 | Discharge Summary ---
- NOTES TO OUTPATIENT PROVIDER Notes to Outpatient Provider: f/u with PCP in one week Date of Encounter: 03/17/18 Time of Encounter: 11:59 - Discharge Diagnosis (1) Acute on chronic respiratory failure with hypoxia and hypercapnia Priority: Primary Status: Resolved (2) Sepsis Priority: Primary Status: Acute Qualifiers: Sepsis type: sepsis due to unspecified organism Qualified Code(s): A41.9 - Sepsis, unspecified organism (3) HTN (hypertension) Priority: Secondary Status: Chronic Qualifiers: Hypertension type: essential hypertension Qualified Code(s): I10 - Essential (primary) hypertension (4) HLD (hyperlipidemia) Priority: Secondary Status: Chronic Qualifiers: Hyperlipidemia type: unspecified Qualified Code(s): E78.5 - Hyperlipidemia , unspecified (5) Obesity (BMI 30.0-34.9) Priority: Secondary Status: Chronic (6) Constipation Priority: Secondary Status: Resolved Qualifiers: Constipation type: unspecified constipation type Qualified Code(s): K59.00 - Constipation, unspecified (7) Acute exacerbation of chronic obstructive pulmonary disease (COPD) Priority: Primary Status: Resolved (8) Elevated troponin Priority: Secondary Status: Acute (9) Hypokalemia Priority: Secondary Status: Resolved (10) Community acquired pneumonia Priority: Primary Status: Acute Qualifiers: Laterality: right Lung location: unspecified part of lung Qualified Code( s): J18.9 - Pneumonia, unspecified organism (11) UTI (urinary tract infection) Priority: Primary Status: Resolved Qualifiers: Urinary tract infection type: site unspecified Hematuria presence: without hematuria Qualified Code(s): N39.0 - Urinary tract infection, site not specified (12) Oral arnold Priority: Secondary Status: Acute Hospital course: Ms. Magaña is a 67yo female with a PMH of COPD requring 2L O2 throughout the day , CAD, HDL, HTN and obesity pt presented to ER on 03/07 with increasing SOB from baseline, subjective fevers and increase in olive green sputum production for the last 48hrs. The pt was found to be O2 sat in the 60's by EMS. She does have sepsis with pneumonia and acute on chronic hypoxic resp failure. She admitted in step down unit and placed hon BiPAP initially and continued empirical abx Rocephin and Azithromycin. However her has not improved intially so switched to broad spec abx Zosyn and Vanc. She was also given high dose IV steroids. Sputum cx showed no growth, Legionella and S pneumo antigens negative , Blood cx showed no growth. SAzithromycin course completed after 5 days. Her WBC still elevated could be reactive. She remained afebrile. Her resp viral panel came back as positive for para influenza. Pt states that breathing is much better today. She is able to speak in full sentences without difficulty. She is stable for discharge. Will d/c her home with PO Augmentin for 5 more days , considering total 2 weeks of abx course. - Time Spent with Patient Total time spent providing and/or coordinating discharge services: - Discharge Medications Prescriptions: Amoxicillin/Clavulanate [Augmentin] 500 mg PO BIDWM #10 tablet GuaiFENesin ER [Mucinex] 1 tab PO BID #30 tbbp.12hr hydrOXYzine pamoate [HydrOXYzine Pamoate] 25 mg PO HS #30 capsule predniSONE [PredniSONE] 30 mg PO DAILY #6 tablet Home Medications: Albuterol Neb [Proventil Neb] 2.5 mg IH Q4HR 03/08/18 [History] Albuterol Sulfate [Albuterol Inhaler] 2 puff IH Q6H PRN 03/08/18 [History] Budesonide/Formoterol 160/4.5 [Symbicort 160/4.5] 2 puff IH BIDR 03/08/18 [ History] Lisinopril [Zestril] 20 mg PO DAILY 03/08/18 [History] Metoprolol [Lopressor] 25 mg PO BID 03/08/18 [History] Potassium Chloride [Klor-Con 10] 10 meq PO BID 03/08/18 [History] Tiotropium [Spiriva] 18 mcg IH 0700 03/08/18 [History] Ubidecarenone [Coq10] 50 mg PO DAILY 03/08/18 [History] hydroCHLOROthiazide [Hydrochlorothiazide] 25 mg PO DAILY 03/08/18 [History] Amoxicillin/Clavulanate [Augmentin] 500 mg PO BIDWM #10 tablet 03/17/18 [Rx] Aspirin Enteric Coated [Aspirin EC] 81 mg PO DAILY tablet. 03/17/18 [Rx] GuaiFENesin ER [Mucinex] 1 tab PO BID #30 tbbp.12hr 03/17/18 [Rx] hydrOXYzine pamoate [HydrOXYzine Pamoate] 25 mg PO HS #30 capsule 03/17/18 [Rx] predniSONE [PredniSONE] 30 mg PO DAILY #6 tablet 03/17/18 [Rx] Allergies/Adverse Reactions: 3 Allergy/AdvReac Type Severity Reaction Status Date / Time No Known Allergies Allergy Verified 03/08/18 09:10 Date of admission: 03/08/18 04:28 Primary care physician: Vladislav Marino MD Consults: 03/08/18 12:37 Consult to Occupational Therapy [CONS] Routine Comment: Evaluate, develop and implement POC Reason for Consult: PTOT eval Does patient have active BEDREST order?: No Is patient medically & hemodynamically stable?: Yes Patient assessed for mobility or mobilized this visit?: No Consult to Physical Therapy [CONS] Routine Comment: Evaluate, develop and implement POC Reason for Consult: PTOT eval Does patient have active BEDREST order?: No Is patient medically & hemodynamically stable?: Yes Patient assessed for mobility or mobilized this visit?: No - Constitutional Vitals: Temp Pulse Resp BP Pulse Ox 98.0 F 78 16 167/86 98 03/17/18 11:35 03/17/18 11:35 03/17/18 11:35 03/17/18 11:35 03/17/18 11:35 General appearance: Present: A&O X 3, obese, answers questions appropriately Exam: see below - Head Head exam: Present: atraumatic, normal inspection - Neck Neck exam general surgery: Present: supple - Respiratory Respiratory exam: Present: decreased breath sounds, wheezes. Absent: rales, respiratory distress, rhonchi - Cardiovascular Cardiovascular exam: Present: RRR, +S1, +S2. Absent: tachycardia - GI/Abdominal GI/Abdominal exam: Present: normal bowel sounds, soft. Absent: rebound, rigid, tenderness - Extremities Exam Extremities exam: Absent: calf tenderness, pedal edema, tenderness - Back Exam Back exam: Absent: CVA tenderness (L), CVA tenderness (R) - Psychiatric Psychiatric exam: Present: normal affect, normal mood - Patient Status Disposition: Home, Self-Care Condition: Good Overall status at discharge: patient is back to baseline - Discharge Instructions Instructions: Chronic Obstructive Pulmonary Disease (DC), Chronic Obstructive Pulmonary Disease (GEN), Sepsis (DC), Sepsis (GEN) Follow Up With: Vladislav Marino MD [Primary Care Provider] - 03/16/18 2:00 pm Bradly Scott [Resident] - - Diet and Activity Activity: increase activity as tolerated, wear oxygen at all times Diet: low salt diet
--- NOTE | 2018-03-17 12:09 | Physician Discharge Referral ---
Home Health/Hosp Referral Info Transfer to: Home Health Provider in Charge Post Discharge: PCP - Diagnosis (1) Acute on chronic respiratory failure with hypoxia and hypercapnia Status: Resolved (2) Sepsis Status: Acute (3) HTN (hypertension) Status: Chronic (4) HLD (hyperlipidemia) Status: Chronic (5) Obesity (BMI 30.0-34.9) Status: Chronic (6) Constipation Status: Resolved (7) Acute exacerbation of chronic obstructive pulmonary disease (COPD) Status: Resolved (8) Elevated troponin Status: Acute (9) Hypokalemia Status: Resolved (10) Community acquired pneumonia Status: Acute (11) UTI (urinary tract infection) Status: Resolved (12) Oral arnold Status: Acute - Respiratory Orders Smoking Cessation: Smoking cessation has been advised. For more information, call the [employer] Quit Line at 8-389-VNCF-NOW. - Services Needed Following services are medically necessary services: Nursing, Physical Therapy, Occupational Therapy - Transfer Medications Prescriptions: Amoxicillin/Clavulanate [Augmentin] 500 mg PO BIDWM #10 tablet GuaiFENesin ER [Mucinex] 1 tab PO BID #30 tbbp.12hr hydrOXYzine pamoate [HydrOXYzine Pamoate] 25 mg PO HS #30 capsule predniSONE [PredniSONE] 30 mg PO DAILY #6 tablet Home Medications: Albuterol Neb [Proventil Neb] 2.5 mg IH Q4HR 03/08/18 [History] Albuterol Sulfate [Albuterol Inhaler] 2 puff IH Q6H PRN 03/08/18 [History] Budesonide/Formoterol 160/4.5 [Symbicort 160/4.5] 2 puff IH BIDR 03/08/18 [ History] Lisinopril [Zestril] 20 mg PO DAILY 03/08/18 [History] Metoprolol [Lopressor] 25 mg PO BID 03/08/18 [History] Potassium Chloride [Klor-Con 10] 10 meq PO BID 03/08/18 [History] Tiotropium [Spiriva] 18 mcg IH 0700 03/08/18 [History] Ubidecarenone [Coq10] 50 mg PO DAILY 03/08/18 [History] hydroCHLOROthiazide [Hydrochlorothiazide] 25 mg PO DAILY 03/08/18 [History] Amoxicillin/Clavulanate [Augmentin] 500 mg PO BIDWM #10 tablet 03/17/18 [Rx] Aspirin Enteric Coated [Aspirin EC] 81 mg PO DAILY tablet. 03/17/18 [Rx] GuaiFENesin ER [Mucinex] 1 tab PO BID #30 tbbp.12hr 03/17/18 [Rx] hydrOXYzine pamoate [HydrOXYzine Pamoate] 25 mg PO HS #30 capsule 03/17/18 [Rx] predniSONE [PredniSONE] 30 mg PO DAILY #6 tablet 03/17/18 [Rx] Allergies/Adverse Reactions: 3 Allergy/AdvReac Type Severity Reaction Status Date / Time No Known Allergies Allergy Verified 03/08/18 09:10 Certification: Further, I certify that my clinical findings support that this patient is homebound (i.e. absences from home require considerable and taxing effort and are for medical reasons or faith services or infrequently or short duration when for other reasons) because: Homebound Reason: Patient requires assistance of a person or device to safely leave home Attestation: My signature below is to certify that this patient is under my care and that I, or nurse practitioner, or a physician's metal moulder's assistant working with me, has a face-to -face encounter with this patient.
== END 2018-03-17 14:29 | disposition home or self-care (01) | DRG 871 ==
LOC: EMEROOARM 22:05 → 2NNU 22:05 → 3BNU 03-13 15:54
PROVIDERS: ADMIT Internal Medicine; ATTEND Internal Medicine

== ENCOUNTER 2020-06-01 16:09 | Inpatient (IN) ==
[2020-06-01] MEDS ORDERED: Ipratropium/Albuterol Neb 3 ML IH ONE (16:21)
[2020-06-01 17:06] LABS: Basophils # 0.2 K/mcL (0.0-0.2); Eosinophils # 0.5 K/mcL (0.0-0.6); Eosinophils % 2.9 %; Hematocrit 41.8 % (35.3-44.9); Hemoglobin 13.6 g/dL (11.5-15.4); Immature Granulocytes % 0.4 % (0-4); Lymphocytes # 3.3 K/mcL (0.6-4.6); Lymphocytes % 20.2 %; Mean Corpuscular HGB Conc 32.5 g/dL (31.6-35.5); Mean Corpuscular Hemoglobin 29.4 pg (28.0-33.3); Mean Corpuscular Volume 90.5 fL (83.0-100.0); Mean Platelet Volume 11.9 fL (9.4-12.4); Monocytes # 1.3 K/mcL (0.0-1.3); Monocytes % 7.9 %; Neutrophils # 10.9 K/mcL (1.6-8.9); Platelet Count 351 K/mcL (140-400); Red Blood Count 4.62 M/mcL (3.82-4.97); Red Cell Distribution Width 12.8 % (11.5-14.5); Segmented Neutrophils % 67.6 %; White Blood Count 16.1 K/mcL (4.3-11.1)
[2020-06-01 17:27] LABS: Fibrinogen 478 mg/dL (169-393)
[2020-06-01 17:29] LABS: D-Dimer 317 ng/mLFEU (0-500)
[2020-06-01 19:25] LABS: Alanine Aminotransferase 22 Units/L (7-52); Albumin 4.2 g/dL (3.5-5.7); Albumin/Globulin Ratio 1.6 (1.1-2.2); Alkaline Phosphatase 61 Units/L (34-104); Aspartate Amino Transferase 21 Units/L (13-39); BUN/Creatinine Ratio 28 (6-26); Bilirubin,Total 0.2 mg/dL (0.3-1.0); Blood Urea Nitrogen 19 mg/dL (8-23); Calcium 9.6 mg/dL (8.6-10.3); Carbon Dioxide 31 mEq/L (23-29); Chloride 98 mEq/L (98-107); Globulin 2.6 g/dL (2.4-3.5); Glucose 115 mg/dL (70-105); Osmolality,Calculated 287 (280-300); Potassium 3.7 mEq/L (3.5-5.1); Sodium 137 mEq/L (136-145); Total Protein 6.8 g/dL (6.4-8.9); Troponin I < 0.03 ng/mL (< 0.04); eGFR For African Americans > 60 (> 60); eGFR For Non-African Americans > 60 (> 60)
[2020-06-01] MEDS ORDERED: methylPREDNISolone 125 MG/2 ML VIAL IVP ONE (19:35)
[2020-06-01] MEDS ORDERED: cefTRIAXone 1,000 MG in Water for inj. (sterile) 10 ML IVP ONE (19:35)
[2020-06-01] MEDS ORDERED: Azithromycin 500 MG in 0.9 % Sodium Chloride 250 ML IVPB ONE (19:35)
[2020-06-01 19:44] LABS: Ferritin 82 ng/mL (10-120)
[2020-06-01] MEDS ORDERED: Acetaminophen 325 MG TABLET PO PRN (20:53)
[2020-06-01] MEDS ORDERED: Naloxone 0.4 MG/ML INJ IVP PRN (20:53)
[2020-06-01] MEDS ORDERED: Chloraseptic Spray 177 ML BOTTLE MM PRN (21:02)
[2020-06-01] MEDS: *HR* Heparin 5,000 UNIT/ML VIAL SQ SCH (21:48)
[2020-06-01] MEDS: Furosemide 20 MG/2 ML VIAL IVP SCH (21:48)
[2020-06-01] MEDS: Lactobacillus 1 EACH CAP.SPRINK PO SCH (21:48)
[2020-06-01 23:06] LABS: Bilirubin,Urine Negative (Negative); Blood,Urine Negative (Negative); Clarity,Urine Clear (Clear); Color,Urine Colorless (Yellow); Glucose,Urine (UA) Normal (Normal); Ketones,Urine Negative (Negative); Leukocyte Esterase,Urine Negative (Negative); Nitrite,Urine Negative (Negative); PH,Urine 6.5 pH Units (5.0-8.0); Protein,Urine Negative (Neg-Trace); Specific Gravity,Urine 1.006 (1.010-1.025); Urobilinogen,Urine Normal (Normal)
[2020-06-02] MEDS ORDERED: Levalbuterol Neb 1.25 MG/3 ML IH SCH (04:00)
[2020-06-02] MEDS: Levalbuterol Neb 1.25 MG/3 ML IH SCH ×4 (04:39→21:15)
[2020-06-02 05:21] LABS: Hematocrit 37.7 % (35.3-44.9); Hemoglobin 12.3 g/dL (11.5-15.4); Mean Corpuscular HGB Conc 32.6 g/dL (31.6-35.5); Mean Corpuscular Hemoglobin 29.1 pg (28.0-33.3); Mean Corpuscular Volume 89.1 fL (83.0-100.0); Mean Platelet Volume 10.7 fL (9.4-12.4); Platelet Count 307 K/mcL (140-400); Red Blood Count 4.23 M/mcL (3.82-4.97); Red Cell Distribution Width 12.7 % (11.5-14.5); White Blood Count 10.2 K/mcL (4.3-11.1)
[2020-06-02 05:41] LABS: BUN/Creatinine Ratio 26 (6-26); Blood Urea Nitrogen 20 mg/dL (8-23); Calcium 9.6 mg/dL (8.6-10.3); Carbon Dioxide 31 mEq/L (23-29); Chloride 101 mEq/L (98-107); Chol/HDL Ratio 4.9 (0-4.9); Cholesterol 255 mg/dL (< 200); Glucose 160 mg/dL (70-105); HDL Cholesterol 52 mg/dL (40-59); LDL Cholesterol,Calculated 176 mg/dL (< 100); Magnesium 1.9 mg/dL (1.6-2.6); Osmolality,Calculated 294 (280-300); Sodium 139 mEq/L (136-145); Triglycerides 137 mg/dL (< 150); Troponin I < 0.03 ng/mL (< 0.04); eGFR For African Americans > 60 (> 60); eGFR For Non-African Americans > 60 (> 60)
[2020-06-02] MEDS: *HR* Heparin 5,000 UNIT/ML VIAL SQ SCH (06:42)
[2020-06-02 06:56] LABS: Estimated Average Glucose 131 mg/dl
[2020-06-02] MEDS ORDERED: methylPREDNISolone 125 MG/2 ML VIAL IVP SCH (08:00)
[2020-06-02] MEDS: Furosemide 20 MG/2 ML VIAL IVP SCH (08:31)
[2020-06-02] MEDS: Aspirin Enteric Coated 81 MG Tablet PO SCH (08:31)
[2020-06-02] MEDS: Lactobacillus 1 EACH CAP.SPRINK PO SCH (08:31)
[2020-06-02] MEDS ORDERED: Budesonide/Formoterol 160/4.5 1 PUFF INH IH SCH (10:00)
[2020-06-02] MEDS ORDERED: NON-FORMULARY MEDICATION 1 EACH EACH (Omeprazole [Prilosec] 40 MG) PO PRN (11:55)
[2020-06-02] MEDS: Apixaban 5 MG TABLET PO SCH ×2 (12:43→20:06)
[2020-06-02] MEDS: hydroCHLOROthiazide 25 MG TABLET PO SCH (12:43)
[2020-06-02] MEDS ORDERED: Perflutren Lipid Microsphere 1.3 ML in 0.9 % Sodium Chloride 8.7 ML IVP PRN (14:25)
[2020-06-02] MEDS: Tiotropium 18 MCG inhalation IH SCH (15:22)
[2020-06-02] MEDS: Sennosides 8.6 MG TABLET PO SCH (17:54)
[2020-06-02] MEDS: MethylPREDNISolone 40 MG/ML VIAL IVP SCH (17:55)
[2020-06-02] MEDS: Acetaminophen 325 MG TABLET PO SCH (20:05)
[2020-06-02] MEDS: Azithromycin 500 MG in 0.9 % Sodium Chloride 250 ML IVPB SCH (20:09)
[2020-06-02] MEDS: HydrOXYzine SYP 10 MG/5 ML UDC PO PRN (20:29)
[2020-06-02] MEDS: Budesonide/Formoterol 160/4.5 1 PUFF INH IH SCH (21:14)
[2020-06-03] MEDS: Levalbuterol Neb 1.25 MG/3 ML IH SCH ×4 (03:20→22:23)
[2020-06-03] MEDS: MethylPREDNISolone 40 MG/ML VIAL IVP SCH ×2 (05:46→17:52)
[2020-06-03 06:24] LABS: Hematocrit 36.8 % (35.3-44.9); Mean Corpuscular HGB Conc 32.6 g/dL (31.6-35.5); Mean Corpuscular Hemoglobin 29.3 pg (28.0-33.3); Platelet Count 310 K/mcL (140-400); Red Blood Count 4.09 M/mcL (3.82-4.97); Red Cell Distribution Width 12.8 % (11.5-14.5); White Blood Count 23.4 K/mcL (4.3-11.1)
[2020-06-03 06:39] LABS: BUN/Creatinine Ratio 40 (6-26); Blood Urea Nitrogen 33 mg/dL (8-23); Calcium 9.9 mg/dL (8.6-10.3); Carbon Dioxide 32 mEq/L (23-29); Chloride 101 mEq/L (98-107); Glucose 146 mg/dL (70-105); Osmolality,Calculated 302 (280-300); Potassium 3.7 mEq/L (3.5-5.1); Sodium 141 mEq/L (136-145); Troponin I < 0.03 ng/mL (< 0.04); eGFR For African Americans > 60 (> 60); eGFR For Non-African Americans > 60 (> 60)
[2020-06-03] MEDS: Vitamin E 200 UNIT (90MG) CAPSULE PO SCH (08:29)
[2020-06-03] MEDS: Lactobacillus 1 EACH CAP.SPRINK PO SCH (08:29)
[2020-06-03] MEDS: Multivit/Ca/Min/Fe/FA 1 TAB TABLET PO SCH (08:29)
[2020-06-03] MEDS: Cyanocobalamin (B-12) 1,000 MCG TABLET PO SCH (08:31)
[2020-06-03] MEDS: Loratadine 10 MG TABLET PO SCH (08:32)
[2020-06-03] MEDS: Aspirin Enteric Coated 81 MG Tablet PO SCH (08:32)
[2020-06-03] MEDS: Furosemide 20 MG TABLET PO SCH (08:32)
[2020-06-03] MEDS: hydroCHLOROthiazide 25 MG TABLET PO SCH (08:33)
[2020-06-03] MEDS: Apixaban 5 MG TABLET PO SCH ×2 (08:33→20:58)
[2020-06-03] MEDS ORDERED: [UNRECOGNIZED DRUG - OTHER] PO SCH (09:00)
[2020-06-03] MEDS ORDERED: NON-FORMULARY MEDICATION 1 EACH EACH (Ubidecarenone/Vit E Acetate [Co Q-10 100 Mg Softgel] PO SCH (09:00)
[2020-06-03] MEDS: Budesonide/Formoterol 160/4.5 1 PUFF INH IH SCH ×2 (09:51→22:23)
[2020-06-03] MEDS: Tiotropium 18 MCG inhalation IH SCH (09:51)
[2020-06-03 09:59] LABS: Basophils % 0.2 %; Hematocrit 37.5 % (35.3-44.9); Hemoglobin 11.9 g/dL (11.5-15.4); Immature Granulocytes % 1.3 % (0-4); Lymphocytes # 1.8 K/mcL (0.6-4.6); Lymphocytes % 7.8 %; Mean Corpuscular HGB Conc 31.7 g/dL (31.6-35.5); Mean Corpuscular Hemoglobin 28.4 pg (28.0-33.3); Mean Corpuscular Volume 89.5 fL (83.0-100.0); Mean Platelet Volume 11.7 fL (9.4-12.4); Monocytes # 0.5 K/mcL (0.0-1.3); Neutrophils # 20.8 K/mcL (1.6-8.9); Platelet Count 302 K/mcL (140-400); Red Blood Count 4.19 M/mcL (3.82-4.97); Red Cell Distribution Width 12.9 % (11.5-14.5); Segmented Neutrophils % 88.7 %; White Blood Count 23.5 K/mcL (4.3-11.1)
[2020-06-03] MEDS: Sennosides 8.6 MG TABLET PO SCH (17:51)
[2020-06-03] MEDS: Azithromycin 500 MG in 0.9 % Sodium Chloride 250 ML IVPB SCH (20:56)
[2020-06-03] MEDS: Acetaminophen 325 MG TABLET PO SCH (20:57)
[2020-06-03] MEDS: HydrOXYzine SYP 10 MG/5 ML UDC PO PRN (21:21)
[2020-06-04] MEDS: Levalbuterol Neb 1.25 MG/3 ML IH SCH ×2 (04:23→07:29)
[2020-06-04] MEDS: Budesonide/Formoterol 160/4.5 1 PUFF INH IH SCH (07:28)
[2020-06-04] MEDS: Tiotropium 18 MCG inhalation IH SCH (07:28)
[2020-06-04] MEDS: Cyanocobalamin (B-12) 1,000 MCG TABLET PO SCH (09:00)
[2020-06-04] MEDS ORDERED: predniSONE 20 MG TABLET PO SCH (09:00)
[2020-06-04] MEDS: hydroCHLOROthiazide 25 MG TABLET PO SCH (09:01)
[2020-06-04] MEDS: Multivit/Ca/Min/Fe/FA 1 TAB TABLET PO SCH (09:01)
[2020-06-04] MEDS: Lactobacillus 1 EACH CAP.SPRINK PO SCH (09:01)
[2020-06-04] MEDS: Aspirin Enteric Coated 81 MG Tablet PO SCH (09:01)
[2020-06-04] MEDS: Loratadine 10 MG TABLET PO SCH (09:01)
[2020-06-04] MEDS: Furosemide 20 MG TABLET PO SCH (09:02)
[2020-06-04] MEDS: Vitamin E 200 UNIT (90MG) CAPSULE PO SCH (09:02)
[2020-06-04] MEDS: Apixaban 5 MG TABLET PO SCH (09:03)
[2020-06-04 09:34] LABS: Basophils % 0.2 %; Hemoglobin 12.2 g/dL (11.5-15.4); Immature Granulocytes % 1.4 % (0-4); Lymphocytes # 2.8 K/mcL (0.6-4.6); Lymphocytes % 12.7 %; Mean Corpuscular HGB Conc 31.3 g/dL (31.6-35.5); Mean Corpuscular Hemoglobin 28.6 pg (28.0-33.3); Mean Corpuscular Volume 91.3 fL (83.0-100.0); Monocytes % 4.6 %; Neutrophils # 17.6 K/mcL (1.6-8.9); Platelet Count 289 K/mcL (140-400); Red Blood Count 4.27 M/mcL (3.82-4.97); Red Cell Distribution Width 13.1 % (11.5-14.5); Segmented Neutrophils % 81.1 %; White Blood Count 21.7 K/mcL (4.3-11.1)
[2020-06-04 11:21] VITALS: BP 152/87
== END 2020-06-04 13:50 | disposition home or self-care (01) | DRG 190 ==
LOC: EMEROOARM 16:09 → 3BNU 16:09 → SUATTDRO 20:25 → 3BNU 20:51
PROVIDERS: ADMIT Student in an Organized Health Care Education/Training Program; ATTEND Internal Medicine